=== PATIENT | male | born 1935 | race Caucasian/White ===

== ENCOUNTER 2016-09-08 11:19 | Inpatient (IN) | payer OTHER, MEDICARE ==
[~2016-09-08] VITALS: Ht 177.8 cm; Wt 107.0 kg
[~2016-09-08 11:19] MED LIST: ALLOPURINOL300 MG PO; CRESTOR20 MG PO; FERROUS SULFAT325 M3 PO; FLOMAX(MONOGRA0.4 MG PO; FLOMAX0.4 M1 PO; GOOD SENSE ASPI81 M1 PO; HUMALOG100 U/ML SC; IMDUR60 MG PO; LASIX20 MG PO; LASIX40 M1 PO; LISINOPRIL40 MG PO; MASON NATURAL325 MG PO; METOPROLOL TART25 M1 PO; NEURONTIN300 M1 PO; NORVASC 5MG TAB5 MG PO; NOVOLIN 701000 UNITS SC; NOVOLOG MI100 UNIT/1 SC; NOVOLOG100 U/ML SC; PRILOSEC20 MG PO; RENAGEL 800MG800 MG PO; SODIUM BICARB325 MG PO; SODIUM BICARBO325 M1 PO; TOPROL XL25 MG PO; VITAMIN D1000 IU PO
--- NOTE | 2016-09-08 11:23 | ED MVC/FALL/TRAUMA COMPLAINT ---
History of Present Illness General Chief Complaint: Fall Stated Complaint: BIBA MECHANICAL FALL Source: patient, family, old records Exam Limitations: no limitations Vital Signs & Intake/Output Vital Signs & Intake/Output Vital Signs Date Time Temp Pulse Resp B/P Pulse O2 O2 Flow FiO2 Ox Delivery Rate 09/09 1039 94 110/42 09/09 1039 94 110/42 09/09 1039 94 110/42 09/09 0825 101.2 94 20 110/42 09/09 0800 92 Nasal 4.0L Cannula 09/09 0729 101.0 09/09 0630 102.0 09/09 0000 96 Nasal 2.0L Cannula 09/08 2346 97.8 86 18 138/82 93 Nasal Cannula 09/08 1931 81 100/50 09/08 1913 Nasal 2.0L Cannula 09/08 1845 81 100/50 09/08 1630 96 Nasal 2.0L Cannula 09/08 1627 97.6 81 16 100/50 95 Nasal 3.0L Cannula ED Intake and Output 09/09 0000 09/08 1200 Intake Total 1450 Output Total 1400 Balance 50 Intake, IV 1050 Intake, Oral 400 Output, Urine 1400 Patient 236 lb 236 lb Weight Allergies Coded Allergies: NO KNOWN ALLERGIES (03/25/16) Reconcile Medications Allopurinol 300 MG TAB 1 TAB PO DAILY GOUT (Reported) Amlodipine (Norvasc 5MG Tab) 5 MG TABLET 1 TAB PO DAILY blood pressure ( Reported) Aspirin 81 MG TAB.CHEW 1 TAB PO DAILY HEART HEALTH (Reported) Cholecalciferol (Vitamin D3) (Vitamin D) 2,000 UNIT TABLET 1 TAB PO DAILY SUPPLEMENT (Reported) Clopidogrel Bisulfate (Clopidogrel) 75 MG TABLET 1 TAB PO DAILY BLOOD THINNER (Reported) Ferrous Sulfate 325 MG TABLET 1 TAB PO BID RENAL FAILURE (Reported) Furosemide (Lasix) 40 MG TABLET 1 TAB PO DAILY CHF (Reported) Gabapentin (Neurontin) 300 MG CAPSULE 2 CAP PO QPM NERVE PAIN (Reported) Insulin Aspart Protam & Aspart (Novolog Mix 70-30 Vial) 100 UNIT/ML (70-30) VIAL 22 U SC BID DIABETES (Reported) Isosorbide Mononitrate (Imdur) [address] 1 TAB PO DAILY CAD (Reported) Metoprolol Tartrate 25 MG TABLET 0.5 TAB PO BID HEART/BP (Reported) Omeprazole (Prilosec) 20 MG ECC 1 TAB PO DAILY GERD (Reported) Rosuvastatin Calcium (Crestor) 20 MG TABLET 1 TAB PO DAILY CHOLESTEROL ( Reported) Sodium Bicarbonate 325 MG TABLET 1 TAB PO BID RENAL (Reported) Tamsulosin HCl (Flomax) 0.4 MG CAP.ER.24H 1 CAP PO QPM PROSTATE (Reported) Triage Nurses Notes Reviewed? yes Onset: Abrupt Duration: LAST NIGHT Timing: single episode today Severity: moderate No Modifying Factors: none ( ) Associated Symptoms: FEVER, LETHARGY, COUGH HPI: This is an 81-year-old male who presents to the ER from home via EMS accompanied by his daughter for chief complaint of shortness of breath, fever of 11.8 today. According to the daughter he was a little lethargic last night. This morning she noticed she was little bit altered took his temperature which was 101.8. The last few days he has not been feeling well but elected to come to the hospital. He has been having an ongoing right foot infection which they've been treating with Flagyl into the wound. The decision was made a few days ago that he really should have amputation of the foot. He also has a chronic cough but might be a little bit worse today. His daughter of chest pain this morning which prompted her to call EMS. Upon arrival he denies any chest pain and does not remember having chest pain at home. Past History Travel History Traveled to [place] past 21 day No Medical History Any Pertinent Medical History? see below for history Neurological: NONE EENT: NONE Cardiovascular: CAD, CHF, CABG FEMORAL STENTS Respiratory: NONE Gastrointestinal: NONE Hepatic: NONE Renal: chronic kidney disease Musculoskeletal: NEUROPATHY Psychiatric: NONE Endocrine: diabetes Blood Disorders: NONE Cancer(s): NONE STENO TYPIST/Reproductive: NONE Other Medical Hx: Diastolic CHF, Lt. carotid stent, BPH, History of MRSA: No History of VRE: No History of CDIFF: No Pneumonia Vaccine: 06/10/04 Influenza Vaccine: 07/25/13 Surgical History Surgical History: VACULAR STENTS Psychosocial History Who do you live with Daughter Services at Home None What is your primary language Maori Family History Family History, If Any: No Known Family History. Hx Contributory? No Review of Systems Review of Systems Constitutional: Reports: fever, malaise, weakness. Eyes: Denies: blindness, blurred vision. Ears, Nose, Throat, Mouth: Reports: no symptoms. Respiratory: Denies: cough, short of breath. Cardiovascular: Reports: chest pain. Gastrointestinal/Abdominal: Denies: abdominal pain, diarrhea, vomiting. Genitourinary: Reports: no symptoms. Musculoskeletal: Reports: no symptoms. Skin: Reports: see HPI (CYANOSIS RIGHT TOES). Neurological/Psychological: Reports: see HPI (LETHARGIC). All Other Systems: Reviewed and Negative Physical Exam Physical Exam General Appearance: well developed/nourished, awake, lethargic, moderate distress, obese Head: atraumatic, normal appearance Eyes: Bilateral: normal appearance, PERRL, EOMI. Ears, Nose, Throat, Mouth: hearing grossly normal Neck: normal inspection, supple, full range of motion Respiratory: decreased breath sounds (BILATEARLLY) Cardiovascular: regular rate/rhythm Peripheral Pulses: 2+ radial (R), 2+ radial (L) Gastrointestinal: soft, non-tender, OBESE Extremities: RIGHT LEG SWELLING, CYANOSIS OF TOES, DIMINIISHED SENSATION Neurologic/Psych: no motor/sensory deficits, awake, LETHARGIC Skin: intact, normal color, warm/dry Core Measures ACS in differential dx? No Severe Sepsis Present: No Septic Shock Present: No Progress Differential Diagnosis: PNEUMONIA, UROSEPSIS, BACTEREMIA, SEPSIS, OSBEOMYELITIS Plan of Care: Orders Procedure Date/time Status BASIC ELECTROLYTES PLUS BUN&CR 09/10 0600 Active Change service to 09/09 1107 Active Change service to 09/09 0905 Active CBC WITHOUT DIFFERENTIAL 09/09 0600 Complete BASIC ELECTROLYTES PLUS BUN&CR 09/09 0600 Complete TROPONIN LEVEL 09/09 0000 Complete EKG 09/09 0000 Active US-RENAL/KIDNEY 09/09 UNK Active House Staff 09/09 UNK Active MISSING MEDICATION FORM 09/09 UNK Active ECHOCARDIOGRAM 09/09 UNK Active Heart Healthy Diet 09/08 D Active Turn and Reposition 09/08 2047 Active Skin Integrity Protocol 09/08 2038 Active Skin/Pressure Ulcer Assess (Sk 09/08 2038 Active RT: Evaluation 09/08 1913 Active TROPONIN LEVEL 09/08 1800 Complete EKG 09/08 1800 Active CULTURE,URINE 09/08 1657 Active Vital Signs 09/08 1637 Active Teach/Educate 09/08 163 Active Nutritional Intake, Monitor 09/08 163 Active Isolation 09/08 1637 Active Intake & Output 09/08 163 Active Patient Care Conference 09/08 1637 Active Activity/Ambulation 09/08 1637 Active STREP PNEUMO URINARY ANTIGEN 09/08 1546 Complete LEGIONELLA URINARY ANTIGEN 09/08 1546 Complete URINALYSIS 09/08 1546 Complete TRC EVALUATION (GEN) 09/08 1508 Complete Pathway - chart 09/08 1508 Active House Staff 09/08 1508 Active Patient Data 09/08 1508 Active Wound Care/Dressing 09/08 1457 Active FingerStick- Glucose 09/08 1457 Active VIRAL CULTURE 09/08 1155 Active MAGNESIUM 09/08 1140 Complete THERAPIST ORDERS 09/08 UNK Complete OXYGEN SETUP (GEN) 09/08 UNK Complete Lab Add-on Test 09/08 UNK Active Garcia, Insertion/Removal/Asses 09/08 UNK Active Current Medications Sig/Howard Start time Last Medication Dose Stop Time Status Admin Ampicillin Sodium/ 1,500 MG Q12H 09/09 1600 AC Sulbactam Sodium (Unasyn) Sodium Chloride 100 ML (Normal Saline 0.9%) Sodium Chloride 1,000 ML Q10H 09/09 1045 AC (Normal Saline 0.9%) Oxycodone/ 1 TAB Q6 PRN 09/08 1800 AC Acetaminophen (Percocet) Acetaminophen 650 MG Q6P PRN 09/08 1515 AC (Tylenol) Laboratory Tests 09/09/16 0615: Anion Gap 18 H, Estimated GFR 11 L, BUN/Creatinine Ratio 16.0, CBC w Diff NO MAN DIFF REQ, RBC 3.02 L, MCV 85.8, MCH 28.4, RDW 15.3 H, MPV 8.3, Gran % 88.8 H, Lymphocytes % 3.8 L, Monocytes % 7.0, Eosinophils % 0.2, Basophils % 0.2, Absolute Granulocytes 11.8 H, Absolute Lymphocytes 0.5 L, Absolute Monocytes 0.9 H, Absolute Eosinophils 0, Absolute Basophils 0, PUBS MCHC 33.1 09/09/16 0200: Urinalysis HEAVY H, Urine Color YEL, Urine Clarity CLDY H, Urine pH 6.0, Ur Specific [place] >= 1.030, Urine Protein 100 H, Urine Ketones NEG, Urine Nitrite NEG, Urine Bilirubin NEG, Urine Urobilinogen 0.2, Ur Leukocyte Esterase TRACE H, Ur Microscopic SEDIMENT EXAMINED, Urine RBC 10-15 H, Urine WBC 5-10 H, Ur Epithelial Cells MOD H, Granular Casts 1-3 H, Urine Hemoglobin LARGE H, Urine Glucose NEG 09/09/16 0045: Troponin I 0.13 *H 09/08/16 1815: Troponin I 0.16 *H Microbiology 09/09 1342 URINE ROUT: Legionella Antigen - COMP 09/09 1342 URINE ROUT: Streptococcus pneumoniae Antigen (M - COMP 09/09 0200 URINE ROUT: Urine Culture - RECD 09/08 1546 LOWER RESP: Respiratory Culture - CAN Cancelled: NO SPUTUM COLLECTED FOR MICRO DEPT. 09/08 1546 LOWER RESP: Gram Stain - CAN Cancelled: NO SPUTUM COLLECTED FOR MICRO DEPT. Diagnostic Imaging: Viewed by Me: Radiology Read. Discussed w/RAD: Radiology Read. Radiology Impression: PATIENT: HOLLIE MALDONADO PRESENT AGE: 81 PATIENT ACCOUNT NO: [id number] : 33 LOCATION: ER ORDERING PHYSICIAN: FARHANA PORTER MD SERVICE DATE: 09/08/16 EXAM TYPE: RAD - XRY -PORTABLE CHEST XRAY EXAMINATION: XR PORTABLE CHEST CLINICAL INFORMATION: Fever, dyspnea, hypoxia COMPARISON: 01/05/2015 TECHNIQUE: Portable view of the chest was obtained. FINDINGS: The lungs are hypoinflated. No focal consolidation, pulmonary edema, or pleural effusion. Stable cardiomediastinal silhouette. IMPRESSION: Hypoinflation with no significant change. No acute pulmonary findings. DICTATED BY: DAVEY DAN MD DATE/TIME DICTATED:09/08/161249 COSTUMER ASSISTANT:ELAINE DATE/TIME TRANSCRIBED:09/08/161249 CONFIDENTIAL, DO NOT COPY WITHOUT APPROPRIATE AUTHORIZATION. <Electronically signed in Other Vendor System> SIGNED BY: DAVEY DAN MD 09/08/161253, PATIENT: HOLLIE MALDONADO PRESENT AGE: 81 PATIENT ACCOUNT NO: [id number] : 33 LOCATION: ER ORDERING PHYSICIAN: FARHANA PORTER MD SERVICE DATE: 09/08/16 EXAM TYPE: RAD - XRY-TOES, RIGHT EXAMINATION: XR TOE , RIGHT CLINICAL INFORMATION: Question osteomyelitis. Right foot wound COMPARISON: None. TECHNIQUE: AP film of the right foot and 2 views of the right great toe FINDINGS: There is a probable skin ulceration adjacent to the medial aspect of the metatarsophalangeal joint of the great toe. No associated focal bone erosion or destruction is appreciated at the level of the skin lesion. There is a marginal erosion at the lateral aspect of the first metatarsophalangeal joint space of proximal phalanx which may be related to arthritic change. There is joint space narrowing and hypertrophic spurring in the proximal and distal interphalangeal joints. No fracture or dislocation is seen. There is arterial vascular calcification IMPRESSION: There is a skin ulcer adjacent to the medial aspect of the first metatarsophalangeal joint of the great toe. No definitive changes of osteomyelitis are seen at this level although early osteomyelitis may not be radiographically apparent. 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 DICTATED BY: MELANY CAMPA MD DATE/TIME DICTATED:09/08/161245 COSTUMER ASSISTANT:ELAINE DATE/TIME TRANSCRIBED:1245 CONFIDENTIAL, DO NOT COPY WITHOUT APPROPRIATE AUTHORIZATION. < Electronically signed in Other Vendor System> SIGNED BY: MELANY CAMPA MD 09/08/16 1254 Initial ED EKG: LBBB Prior EKG: unchanged Rhythm Strip: normal sinus rhythm ED Sepsis Exam Date of Focused Sepsis Exam: 09/08/16 Time of Focused Sepsis Exam: 1145 Sepsis Cardiac Exam: Regular Rate/Rhythm Sepsis Resp Exam: Ronchi Sepsis Cap Refill Exam: <2 Sec Sepsis Peripheral Pulse Exam: Normal Sepsis Peripheral Pulse Location: Radial Sepsis Skin Color Exam: Normal for Ethnicity Skin Temp/Moisture Exam: Warm/Dry Departure Departure Time of Disposition: 131 Disposition: STILL A PATIENT Condition: Stable Clinical Impression Primary Impression: Pneumonia Secondary Impressions: Elevated troponin Referrals: WALLACE LORD MD (PCP/Family) Departure Forms: Customer Survey General Discharge Information Admission Note Spoke With: CHIDI CHAMPION MD Documentation of Exam: Documentation of any treatments & extenuating circumstances including Concerns Regarding Discharge (functional status, medication knowledge or non-compliance, living conditions, etc.) that warrant an admission rather than observation: [IV ABX, MONITOR I/O, TRC/NEBS, SERIAL EKG/TROPONIN, F/U CULTURES, CARDIOLOGY CONSULTATION, RENAL CONSULTATION, ] Critical Care Note Critical Care Note Critical Care Time: 30-74 min
--- NOTE | 2016-09-08 11:30 | NUR ---
BIBA FROM HOME S/P FALL YESTERDAY AND C/P LEFT SIDED FLANK AREA PAIN. PT ARRIVES TO ED WITH DAUGHTER, WHO STATES PT HAS ONGOING WOUNDS TO RIGHT TOES/FOOT, RECENT DECISION MADE TO AMPUTATE. TEMP UPON ARRIVAL 100.0, PER DAUGHTER TEMP WAS 101.8 AT HOME.
[2016-09-08] MEDS ORDERED: VITAMIN D2000 UNI1 PO (11:46)
[2016-09-08] MEDS ORDERED: CLOPIDOGREL75 M1 PO (11:47)
[2016-09-08 11:58] LABS: ABSOLUTE BASOPHIL COUNT 0.1 /CUMM (0.0-0.2); ABSOLUTE EOSINOPHIL COUNT 0 /CUMM (0.0-0.7); ABSOLUTE GRANULOCYTE CT 13.3 /CUMM (1.4-6.5); ABSOLUTE MONOCYTE COUNT 1.6 /CUMM (0.10-0.60); BASOPHIL % 0.4 % (0.0-2.0); EOSINOPHIL % 0.2 % (0-5); HEMATOCRIT 27.5 % (42-52); MEAN CORPUSCULAR HGB 28.7 PG (27.0-31.0); MEAN CORPUSCULAR HGB CONC 33.3 G/DL (33.0-37.0); MEAN CORPUSCULAR VOLUME 86.2 FL (80.0-94.0); MEAN PLATELET VOLUME 7.2 FL (7.4-10.4); PLATELET COUNT 187 /CUMM (130-400); WHITE BLOOD CELL COUNT 15.9 /CUMM (4.8-10.8)
--- NOTE | 2016-09-08 12:00 | NUR ---
PCXR AND R TOE/FOOT XRAYS DONE. BLOOD CULTURE X 1 AND BLOODWORK,SST,LAV,BLUE,DICK AND PINK TOP TUBES, FLU SWAB AND SPUTUM CULTURE SENT TO LAB.
[2016-09-08 12:11] LABS: GRANULOCYTE % 83.3 % (42.2-75.2)
--- NOTE | 2016-09-08 12:18 | NUR ---
RESP TX IN PROGRESS.
--- NOTE | 2016-09-08 12:30 | NUR ---
CRITICAL TEST RESULTS [id number] HOLLIE MALDONADO 81 M TESTS AND RESULTS: TROPONIN .18 Results received and read back by: JEREMY ZHOU Results received date and time: 09/08/16 1231 The following provider was notified of the results, and read the results back: DR PORTER Notified date and time: 09/08/16 at 1232 PER CYNTHIA IN LAB
--- NOTE | 2016-09-08 12:54 | RADIOLOGY REPORT ---
EXAMINATION: XR TOE, RIGHT CLINICAL INFORMATION: Question osteomyelitis. Right foot wound COMPARISON: None. TECHNIQUE: AP film of the right foot and 2 views of the right great toe FINDINGS: There is a probable skin ulceration adjacent to the medial aspect of the metatarsophalangeal joint of the great toe. No associated focal bone erosion or destruction is appreciated at the level of the skin lesion. There is a marginal erosion at the lateral aspect of the first metatarsophalangeal joint space of proximal phalanx which may be related to arthritic change. There is joint space narrowing and hypertrophic spurring in the proximal and distal interphalangeal joints. No fracture or dislocation is seen. There is arterial vascular calcification IMPRESSION: There is a skin ulcer adjacent to the medial aspect of the first metatarsophalangeal joint of the great toe. No definitive changes of osteomyelitis are seen at this level although early osteomyelitis may not be radiographically apparent. 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
--- NOTE | 2016-09-08 12:54 | RADIOLOGY REPORT ---
EXAMINATION: XR PORTABLE CHEST CLINICAL INFORMATION: Fever, dyspnea, hypoxia COMPARISON: 01/05/2015 TECHNIQUE: Portable view of the chest was obtained. FINDINGS: The lungs are hypoinflated. No focal consolidation, pulmonary edema, or pleural effusion. Stable cardiomediastinal silhouette. IMPRESSION: Hypoinflation with no significant change. No acute pulmonary findings.
--- NOTE | 2016-09-08 13:14 | NUR ---
ANTIBIOTICS ORDERED. DECUBITUS NOTED UPPER RT BUTTOCKS AREA. SKIN BROKEN. STAGE 2. DR PORTER AWARE.
--- NOTE | 2016-09-08 13:58 | NUR ---
PT WILL GO TO ROOM 171
--- NOTE | 2016-09-08 14:38 | NUR ---
REPORT GIVEN TO APOLONIA KRAUSE ON . STATES WE CAN TRANSPORT PT AFTER 3:30PM. HOUSESTAFF IN TO SEE PT.
--- NOTE | 2016-09-08 14:43 | NUR ---
PT REQUESTING/GIVEN URINAL AT PRESENT. WILL OBTAIN URINE SPECIMEN IF ABLE TO PROVIDE.
--- NOTE | 2016-09-08 15:09 | NUR ---
PT HAS HEAD CT ORDERED, DAUGHTER REFUSES IT AT THIS TIME, WILL CONSIDER IF ANYTHING CHANGES. DR OBRIEN NOTIFIED.
--- NOTE | 2016-09-08 15:46 | NUR ---
PER MONITOR PATIENT HAD EPISODE OF [place] BY RECORDING JUST [employer] OBSERVED 3 EPISODES OF PVC COUPLETS OBSERVED PATIENT SLEEPING THOUGHOUT EVENTS DR OBRIEN CALLED AND INFORMED TO CONTINUE W/ TRANSPORT
--- NOTE | 2016-09-08 15:51 | History & Physical ---
KHUSHBU OBRIEN 09/08/16 0230: General Information and HPI MD Statement: I have seen and personally examined HOLLIE MALDONADO and documented this H&P. The patient is a 81 year old M who presented with a patient stated chief complaint of [dyspnea/chest pain]. Source of Information: patient, family (daughter) Exam Limitations: unable to give history, not alert/orientated, clinical condition History of Present Illness: Mr. Maldonado is an 81-year-old gentleman with significant past medical history of CAD status post CABG, peripheral artery disease status post carotid endarterectomy, and femoral artery stenting], sick sinus syndrome status post pacemaker placement, diabetes, stage III CKD, hypertension, hyperlipidemia, diabetes who presents to [facility] emergency department for evaluation of dyspnea and chest pain. At the time of interview, the patient was quite lethargic and most of the interview was obtained from his daughter who is a nurse and lives with him. She states that he was feeling well over the last week, and is at baseline quite independent. She states that he does almost everything himself except for a wound care dressing change to his right foot. She states that this morning he complained of dyspnea as well as a single episode of chest pain this morning. When she checked his vitals, she states that it was 100.8 and she called EMS. When EMS arrived the patient was more arousable however he was still febrile, 100, and they decided to come to the hospital. When questioned the patient states that he is not dyspneic or having any pain however he is quite lethargic and alert and oriented 2. It should be noted that he did have a fall yesterday, which was mechanical, and he did hit his ear however denies any significant head strike, headache, nausea, vomiting, dizziness, lightheadedness or visual/hearing changes. Also, it should be noted that he has been on flagyl for treatment of a chronic right foot ulcer (a family friend library acquisitions technician has been taking care of this), however the daughter states the patient has not had an MRI to evaluate for osteomyelitis. Social hx - quit smoking 50y ago, occasional EtOH use (social) Again the patient was unable to thoroughly answer a review of systems. Physical exam revealed vitals, temperature 100.0, pulse rate 89, respiratory rate 20, BP 125/60, saturating 95% on 2 L of oxygen via nasal cannula. Examination revealed a lethargic age appropriate appearing male lying comfortably in bed in no acute distress. Normal HEENT exam, auscultation of the chest revealed quiet respiration bilaterally, no rhonchi or wheezes/rales appreciated. Heart exam also revealed quiet S1-S2, no murmurs rubs or gallops are appreciated. Abdomen was distended and nontender. Lower extremities revealed bilateral +2 pitting edema to the proximal motion. A 2" x 1.5 right great toe ulcer on the medial aspect was noted. poor cap refill bilaterally in the toes with care to be a small area of necrosis in the lateral aspect of the right foot distally. Pulses not appreciated by palpation. EKG revealed sinus rhythm at a rate of 83 bpm with incomplete left bundle branch block which is unchanged from previous examination. Significant labs H&H 9.2/ 27.5. White blood cell count 15.9. BUN/creatinine 73/4.5. First set of troponin 0.18. BNP 6580. Chest x-ray revealed hypoinflation with no significant change and no pulmonary findings. An x-ray of the toe revealed a skin ulcer adjacent to the medial aspect of the first MTP joint of the great toe. No definitive changes of ostium myelitis were seen. Head CT was ordered however the patient's daughter stated that she would like to hold off on the head CT for now. She was amenable to an MRI of the right foot to evaluate for osteoarthritis. Problem list/assessment and plan Elevated troponin in light of significant coronary artery disease and vasculopathy * The patient does have a significant risk of myocardial infarction. However, I do believe that his troponinosis is most likely secondary to demand ischemia - he did meet sepsis criteria * We will admit to telemetry and rule him out with serial enzymes and EKGs * Cardiac consult placed and appreciated. Leukocytosis * He does meet sepsis criteria, temperature and leukocytosis with a source [ right foot ulcer] * We will draw blood cultures and start Unasyn 3 g every 12 hours as he does have CKD with a decreased GFR * MRI to evaluate for osteomyelitis * We will repeat CBC tomorrow * The daughter did state he had an episode of sputum production, green, Unasyn will also cover any pulmonary pathology. * We will investigate with urinary legionella/strep as well as sputum culture. Acute on chronic kidney disease * Per the daughter, his last creatinine approximately 1 week ago was 2.5. * On admission today it is 4.5. * Per the daughter, he has not voided since yesterday. We will insert a Garcia catheter and reevaluate BEP tomorrow, in conjunction with gentle hydration 50 mL of normal saline per hour. * ? obstruction vs BPH * If his kidney function does not improve, consider renal u/s and neprho consult. * He follows up with Dr. Vazquez in the outpt setting * We will hold lasix and allopurinol for now. Please reassess in the am. Diabetes * Continue home dose of novolog 70/30, 22 units BID and we will place him on a sliding scale with fingerstick measurements TIDACHS. Vasculopathy * s/p femoral stenting bilaterally per the daughter. * Pt has been evaluated for a right foot amputation in the past. We will consider vascular consult as if his foot does have osteomyelitis, ABx treatment will not penetrate the area well as it is not well perfused. Hypertension * continue home meds Pt does not want any aggressive measures - triple lumen with pressors ok for now , please talk to daughter if this is necessary. DNR/DNI heart healthy diet heparin for dvt ppx pain path Allergies/Medications Allergies: Coded Allergies: NO KNOWN ALLERGIES (03/25/16) Home Med list Allopurinol 300 MG TAB 1 TAB PO DAILY GOUT (Reported) Amlodipine (Norvasc 5MG Tab) 5 MG TABLET 1 TAB PO DAILY blood pressure ( Reported) Aspirin 81 MG TAB.CHEW 1 TAB PO DAILY HEART HEALTH (Reported) Cholecalciferol (Vitamin D3) (Vitamin D) 2,000 UNIT TABLET 1 TAB PO DAILY SUPPLEMENT (Reported) Clopidogrel Bisulfate (Clopidogrel) 75 MG TABLET 1 TAB PO DAILY BLOOD THINNER (Reported) Ferrous Sulfate 325 MG TABLET 1 TAB PO BID RENAL FAILURE (Reported) Furosemide (Lasix) 40 MG TABLET 1 TAB PO DAILY CHF (Reported) Gabapentin (Neurontin) 300 MG CAPSULE 2 CAP PO QPM NERVE PAIN (Reported) Insulin Aspart Protam & Aspart (Novolog Mix 70-30 Vial) 100 UNIT/ML (70-30) VIAL 22 U SC BID DIABETES (Reported) Isosorbide Mononitrate (Imdur) [address] 1 TAB PO DAILY CAD (Reported) Metoprolol Tartrate 25 MG TABLET 0.5 TAB PO BID HEART/BP (Reported) Omeprazole (Prilosec) 20 MG ECC 1 TAB PO DAILY GERD (Reported) Rosuvastatin Calcium (Crestor) 20 MG TABLET 1 TAB PO DAILY CHOLESTEROL ( Reported) Sodium Bicarbonate 325 MG TABLET 1 TAB PO BID RENAL (Reported) Tamsulosin HCl (Flomax) 0.4 MG CAP.ER.24H 1 CAP PO QPM PROSTATE (Reported) Past History Travel History Traveled to [place] past 21 day No Medical History Neurological: NONE EENT: NONE Cardiovascular: CAD, CHF, CABG FEMORAL STENTS Respiratory: NONE Gastrointestinal: NONE Hepatic: NONE Renal: chronic kidney disease Musculoskeletal: NEUROPATHY Psychiatric: NONE Endocrine: diabetes Blood Disorders: NONE Cancer(s): NONE ENGINEERING SYSTEMS ANALYST/Reproductive: NONE Other Medical Hx: Diastolic CHF, Lt. carotid stent, BPH, History of MRSA: No History of VRE: No History of CDIFF: No Pneumonia Vaccine: 06/10/04 Influenza Vaccine: 07/25/13 Surgical History Surgical History: see HPI Past Family/Social History Family History Relations & Conditions if any No Known Family History. Psychosocial History Services at Home: None ETOH Use: denies use Illicit Drug Use: denies illicit drug use Review of Systems Review of Systems Constitutional: Reports: see HPI. Exam & Diagnostic Data Last 24 Hrs of Vital Signs/I&O Vital Signs Date Time Temp Pulse Resp B/P Pulse O2 O2 Flow FiO2 Ox Delivery Rate 09/08 1627 97.6 81 16 100/50 95 Nasal 3.0L Cannula 09/08 1419 96 Room Air 09/08 1414 97.1 88 16 110/64 96 Room Air 09/08 1347 98.1 09/08 1215 96 Nasal 2.5L Cannula 09/08 1200 100.0 09/08 1123 100.0 89 20 125/60 95 Nasal 2.0L Cannula Intake & Output 09/08 1600 09/08 0800 09/08 0000 Intake Total 850 Output Total Balance 850 Intake, IV 850 Patient 107.048 kg Weight Physical Exam General Appearance See HPI Diagnostic Data EKG Results SR at 83 with incomplete LBBB CXR Results SERVICE DATE: 09/08/16 EXAM TYPE: RAD - XRY-PORTABLE CHEST XRAY EXAMINATION: XR PORTABLE CHEST CLINICAL INFORMATION: Fever, dyspnea, hypoxia COMPARISON: 01/05/2015 TECHNIQUE: Portable view of the chest was obtained. FINDINGS: The lungs are hypoinflated. No focal consolidation, pulmonary edema, or pleural effusion. Stable cardiomediastinal silhouette. IMPRESSION: Hypoinflation with no significant change. No acute pulmonary findings. Other Results SERVICE DATE: 09/08/16 EXAM TYPE: RAD - XRY-TOES, RIGHT EXAMINATION: XR TOE, RIGHT CLINICAL INFORMATION: Question osteomyelitis. Right foot wound COMPARISON: None. TECHNIQUE: AP film of the right foot and 2 views of the right great toe FINDINGS: There is a probable skin ulceration adjacent to the medial aspect of the metatarsophalangeal joint of the great toe. No associated focal bone erosion or destruction is appreciated at the level of the skin lesion. There is a marginal erosion at the lateral aspect of the first metatarsophalangeal joint space of proximal phalanx which may be related to arthritic change. There is joint space narrowing and hypertrophic spurring in the proximal and distal interphalangeal joints. No fracture or dislocation is seen. There is arterial vascular calcification IMPRESSION: There is a skin ulcer adjacent to the medial aspect of the first metatarsophalangeal joint of the great toe. No definitive changes of osteomyelitis are seen at this level although early osteomyelitis may not be radiographically apparent. 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 Assessment/Plan As Ranked By This Provider Problem List: 1. Elevated troponin 2. Acute renal failure 3. DNI (do not intubate) 4. DNR (do not resuscitate) 5. CAD (coronary artery disease) 6. Shortness of breath 7. Diabetes mellitus type 2 8. Coronary artery bypass grafts x 4 Core Measures/Miscellaneous Acute Coronary Syndrome ACS Diagnosis: No Cerebrovascular Accident CVA/TIA Diagnosis: No Congestive Heart Failure CHF Diagnosis: No Venous Thromboembolism VTE Risk Factors: Acute medical illness VTE Prophylaxis Ordered Inpt: [facility] prophylaxis d/t: No contraindications No VTE Pharm Prophylaxis d/t: No contraindications VTE Diagnosis: No VTE Type: NONE VTE Confirmed by (Test): NONE Severe Sepsis Severe Sepsis Present: No Septic Shock Septic Shock Present: No Miscellaneous Documentation Attending Case Discussed With: CHIDI CHAMPION MD Primary Care Physician: WALLACE LORD MD Patient sees these Specialists Dr. Ann and Dr. Vazquez Level of Patient Care: Telemetry CHIDI CHAMPION MD 09/08/16 5718: Attending MD Review Statement Attending Statement Attending MD Statement: examined this patient, discuss w/resident/PA/LIABILITY ANALYST, agreed w/resident/PA/LIABILITY ANALYST, discussed with family, reviewed EMR data (avail), discussed with nursing, reviewed images Attending Assessment/Plan: 81-year-old male with past medical history significant for diabetes mellitus, with peripheral neuropathy, coronary artery disease status post CABG, CHF, permanent pacemaker, peripheral vascular disease status post femoral stents, chronic kidney disease and BPH comes in, along with his daughter who is a nurse at [employer], for shortness of breath, fever and chest pain for 1 day. She also reported to have lower extremity wounds R>L with 2 open wounds on the right heel. Patient has not been admitted to the hospital in the last 1-1/2 years. On examination he was found to be therapeutic with a temp of 100, blood pressure 110/64, pulse rate 81 respiratory rate 16 and is requiring 3 L of oxygen on nasal cannula. Physical examination shows an obese male, lethargic, HEENT exam normal, decreased breath sounds bilaterally on chest examination, heart rate is regular rhythm with no murmurs, right lower extremity shows 2 wounds on the sole with bluish discoloration of the toes Laboratory showing leukocytosis, low H&H, BUN/creatinine 73/4.5, hyperglycemia, elevated troponin, elevated proBNP, chest x-ray with no acute pulmonary findings , and total x-rays not significant for osteomyelitis. Problem list: 1. Rule out acute coronary syndrome 2. Acute on chronic kidney disease 3. Diabetes mellitus with neuropathy 4. Peripheral vascular disease 5. Acute hypoxemic failure probably clinical pneumonia 6. CHF 7. Chronic wounds on the lower extremities, ? Osteomyelitis 8. Hyperglycemia Plan: We will admit the patient to the telemetry floor Rule out for ACS by doing serial troponins and EKGs Cardiology input,will get an echo Gentle IV fluids, avoid nephrotoxic medications, nephro consult Terry culture urine for legionella and strept antigen will start on IV unasyn and azithro, consider ID consult in the morning Wound management,Vascular consult Check PT/INR Continue with aspirin and Plavix Insulin sliding scale DVT prophylaxis DNI/DNR
[2016-09-08 16:27] VITALS: BP 100/50
--- NOTE | 2016-09-08 16:29 | Cons- Cardiology ---
General Information and HPI Consulting Request Date of Consult: 09/08/16 Requested By: CHIDI CHAMPION MD Reason for Consult: Elevated troponin Source of Information: patient, family, old records Exam Limitations: not alert/orientated History of Present Illness: Mr. Maldonado is an 81-year-old gentleman with a past medical history of chronic renal insufficiency, hypertension, hypercholesterolemia, diabetes mellitus, as well as coronary artery disease, status post bypass surgery 10 years ago and peripheral vascular disease (status post carotid endarterectomy and multiple peripheral stentings). He also has sick sinus syndrome and is status post pacemaker implantation. The patient had a fall last night and was noted to be febrile by his daughter and he was brought to the emergency department today. He also was noted to be more lethargic. There evaluation revealed that he was febrile to 100.0 and he had a troponin of 0.18. He also has an ischemic right foot. He did have recent peripheral vascular stenting a few months ago but apparently this was unsuccessful in improving his blood flow and he was going to have a transmetatarsal amputation of his right foot according to the daughter. However this has not yet been scheduled. While in the emergency department there was a report of possible short run of ventricular tachycardia noted on the portable monitor although this was not recorded. At this time the patient is very lethargic and constantly falling asleep and unable to give any good history. However his daughter is present and is conversant with his medical history. Allergies/Medications Allergies: Coded Allergies: NO KNOWN ALLERGIES (03/25/16) Home Med List: Allopurinol 300 MG TAB 1 TAB PO DAILY GOUT (Reported) Amlodipine (Norvasc 5MG Tab) 5 MG TABLET 1 TAB PO DAILY blood pressure ( Reported) Aspirin 81 MG TAB.CHEW 1 TAB PO DAILY HEART HEALTH (Reported) Cholecalciferol (Vitamin D3) (Vitamin D) 2,000 UNIT TABLET 1 TAB PO DAILY SUPPLEMENT (Reported) Clopidogrel Bisulfate (Clopidogrel) 75 MG TABLET 1 TAB PO DAILY BLOOD THINNER (Reported) Ferrous Sulfate 325 MG TABLET 1 TAB PO BID RENAL FAILURE (Reported) Furosemide (Lasix) 40 MG TABLET 1 TAB PO DAILY CHF (Reported) Gabapentin (Neurontin) 300 MG CAPSULE 2 CAP PO QPM NERVE PAIN (Reported) Insulin Aspart Protam & Aspart (Novolog Mix 70-30 Vial) 100 UNIT/ML (70-30) VIAL 22 U SC BID DIABETES (Reported) Isosorbide Mononitrate (Imdur) [address] 1 TAB PO DAILY CAD (Reported) Metoprolol Tartrate 25 MG TABLET 0.5 TAB PO BID HEART/BP (Reported) Omeprazole (Prilosec) 20 MG ECC 1 TAB PO DAILY GERD (Reported) Rosuvastatin Calcium (Crestor) 20 MG TABLET 1 TAB PO DAILY CHOLESTEROL ( Reported) Sodium Bicarbonate 325 MG TABLET 1 TAB PO BID RENAL (Reported) Tamsulosin HCl (Flomax) 0.4 MG CAP.ER.24H 1 CAP PO QPM PROSTATE (Reported) Current Medications: Current Medications Sig/Howard Start time Last Medication Dose Route Stop Time Status Admin Acetaminophen 650 MG Q6P PRN 09/08 1515 AC PO Acetaminophen 1,000 MG Q6P PRN 09/08 1515 AC IV Acetaminophen 1,000 MG ONCE ONE 09/08 1145 DC 09/08 N/A 1 UNIT IV 09/08 1159 1200 Acetaminophen 0 .STK-MED ONE 09/08 1143 DC IV Albuterol Sulfate 3 ML ONCE ONE 09/08 1145 DC 09/08 INH 09/08 1146 1210 Amlodipine Besylate 5 MG DAILY 09/09 1000 AC PO Ampicillin Sodium/ 3,000 MG Q12H 09/08 1600 AC Sulbactam Sodium IV Sodium Chloride 100 ML Aspirin 81 MG DAILY 09/09 1000 AC PO Aspirin 0 .STK-MED ONE 09/08 1338 DC PO Aspirin 325 MG ONCE ONE 09/08 1330 DC 09/08 PO 09/08 1331 1346 Atorvastatin Calcium 80 MG 1700 09/08 1700 AC PO Azithromycin 500 MG DAILY 09/08 1452 AC Sodium Chloride 250 ML IV Azithromycin 500 MG ONCE ONE 09/08 1215 DC 09/08 Sodium Chloride 250 ML IV 09/08 1314 1310 Ceftriaxone Sodium 0 .STK-MED ONE 09/08 1226 DC .ROUTE Ceftriaxone Sodium 1,000 MG ONCE ONE 09/08 1215 DC 09/08 IV 09/08 1216 1245 Cholecalciferol 2,000 IU DAILY 09/09 1000 AC PO Clopidogrel Bisulfate 75 MG DAILY 09/09 1000 AC PO Ferrous Sulfate 325 MG BID 09/08 2200 AC PO Gabapentin 600 MG QPM 09/08 2200 AC PO Heparin Sodium 5,000 UNIT Q8 09/08 1504 AC (Porcine) SC Insulin Aspart Prota 22 UNIT BID 09/08 2199 AC 70%/Aspart 30% SC Isosorbide 60 MG DAILY 09/08 1448 AC Mononitrate PO Metoprolol Tartrate 12.5 MG BID 09/08 2199 AC PO Omeprazole 20 MG DAILY AC 09/08 1448 AC PO Oxycodone/ 1 TAB Q6 PRN 09/08 1800 AC Acetaminophen PO Sodium Bicarbonate 325 MG BID 09/08 2199 AC PO Sodium Chloride 1,000 ML DAILY 09/08 1515 AC IV 09/10 0559 Sodium Chloride 500 ML BOLUS ONE 09/08 1245 DC 09/08 IV 09/08 1344 1322 Tamsulosin HCl 0.4 MG QPM 09/08 2199 AC PO Review of Systems Review of Systems: Unable to be obtained Past History Travel History Traveled to [place] past 21 day No Medical History Neurological: NONE EENT: NONE Cardiovascular: CAD, CHF, CABG FEMORAL STENTS Respiratory: NONE Gastrointestinal: NONE Hepatic: NONE Renal: chronic kidney disease Musculoskeletal: NEUROPATHY Psychiatric: NONE Endocrine: diabetes Blood Disorders: NONE Cancer(s): NONE ACCOUNTING ASSOCIATE/Reproductive: NONE Other Medical Hx: Diastolic CHF, Lt. carotid stent, BPH, Surgical History Surgical History: CABG (vascular surgery) Family History Relations & Conditions If Any: No Known Family History. Psychosocial History Services at Home: None ETOH Use: denies use Illicit Drug Use: denies illicit drug use Exam & Diagnostic Data Vital Signs and I&O Vital Signs Date Time Temp Pulse Resp B/P Pulse O2 O2 Flow FiO2 Ox Delivery Rate 09/08 1627 97.6 81 16 100/50 95 Nasal 3.0L Cannula 09/08 1419 96 Room Air 09/08 1414 97.1 88 16 110/64 96 Room Air 09/08 1347 98.1 09/08 1215 96 Nasal 2.5L Cannula 09/08 1200 100.0 09/08 1123 100.0 89 20 125/60 95 Nasal 2.0L Cannula Intake & Output 09/08 1600 09/08 0000 09/07 1600 09/07 0000 Intake Total 850 Output Total Balance 850 Intake, IV 850 Patient 236 lb Weight Physical Exam: On physical he is an elderly obese male lethargic but in no distress HEENT exam is grossly normal Chest reveals no abnormalities to limited exam Heart reveals slightly irregular rhythm with soft heart sounds and no murmurs Extremities reveal toes on his right foot are cyanotic and ischemic. He has 2+ pitting edema of his lower extremities and absent pulses in the feet Labs/Kirk Results: Laboratory Tests 09/08 09/08 1432 1140 Chemistry Sodium (137 - 145 mmol/L) 136 L Potassium (3.5 - 5.1 mmol/L) 4.3 Chloride (98 - 107 mmol/L) 95 L Carbon Dioxide (22 - 30 mmol/L) 22 Anion Gap (5 - 16) 20 H BUN (9 - 20 mg/dL) 73 H Creatinine (0.7 - 1.2 mg/dL) 4.5 H Estimated GFR (>60 ml/min) 13 L BUN/Creatinine Ratio (7 - 25 %) 16.2 Glucose (65 - 99 mg/dL) 176 H Lactic Acid (0.7 - 2.1 mmol/L) Cancelled 1.1 Calcium (8.4 - 10.2 mg/dL) 8.3 L Total Bilirubin (0.2 - 1.3 mg/dL) 0.6 AST (17 - 59 U/L) 22 ALT (21 - 72 U/L) 18 L Alkaline Phosphatase (< 127 U/L) 54 Troponin I (<0.11 ng/ml) 0.18 *H [id number] Pept (<125 pg/mL) 6580 H Total Protein (6.3 - 8.2 g/dL) 6.2 L Albumin (3.5 - 5.0 g/dL) 3.6 Globulin (1.9 - 4.2 gm/dL) 2.6 Albumin/Globulin Ratio (1.1 - 2.2 %) 1.4 Hematology CBC w Diff NO MAN DIFF REQ WBC (4.8 - 10.8 /CUMM) 15.9 H RBC (4.70 - 6.10 /CUMM) 3.20 L Hgb (14.0 - 18.0 G/DL) 9.2 L Hct (42 - 52 %) 27.5 L MCV (80.0 - 94.0 FL) 86.2 MCH (27.0 - 31.0 PG) 28.7 RDW (11.5 - 14.5 %) 15.0 H Plt Count (130 - 400 /CUMM) 187 MPV (7.4 - 10.4 FL) 7.2 L Gran % (42.2 - 75.2 %) 83.3 H Lymphocytes % (20.5 - 51.1 %) 6.1 L Monocytes % (1.7 - 9.3 %) 10.0 H Eosinophils % (0 - 5 %) 0.2 Basophils % (0.0 - 2.0 %) 0.4 Absolute Granulocytes (1.4 - 6.5 /CUMM) 13.3 H Absolute Lymphocytes (1.2 - 3.4 /CUMM) 1.0 L Absolute Monocytes (0.10 - 0.60 /CUMM) 1.6 H Absolute Eosinophils (0.0 - 0.7 /CUMM) 0 Absolute Basophils (0.0 - 0.2 /CUMM) 0.1 PUBS MCHC (33.0 - 37.0 G/DL) 33.3 Diagnostic Data EKG Results EKG on presentation shows sinus rhythm at a rate of 87 with an incomplete left bundle branch block pattern and no acute changes. CXR Results PATIENT: HOLLIE MALDONADO PRESENT AGE: 81 PATIENT ACCOUNT NO: [id number] : 33 LOCATION: [facility] ORDERING PHYSICIAN: FARHANA PORTER MD SERVICE DATE: 09/08/16113 EXAM TYPE: RAD - XRY-PORTABLE CHEST XRAY EXAMINATION: XR PORTABLE CHEST CLINICAL INFORMATION: Fever, dyspnea, hypoxia COMPARISON: 01/05/2015 TECHNIQUE: Portable view of the chest was obtained. FINDINGS: The lungs are hypoinflated. No focal consolidation, pulmonary edema, or pleural effusion. Stable cardiomediastinal silhouette. IMPRESSION: Hypoinflation with no significant change. No acute pulmonary findings. DICTATED BY: DAVEY DAN MD DATE/TIME DICTATED:09/08/161249 PROTECTIVE CLOTHING ISSUER:ELAINE DATE/TIME TRANSCRIBED:09/08/161249 CONFIDENTIAL, DO NOT COPY WITHOUT APPROPRIATE AUTHORIZATION. <Electronically signed in Other Vendor System> SIGNED BY: DAVEY DAN MD 04/179 Assessment/Plan Assessment/Plan This patient presents with worsening renal failure, fever, lethargy and slightly positive troponin. This is likely demand ischemia, however serial enzymes need to be done. His EKG does not show any acute changes. His chest x-ray did not demonstrate any congestive heart failure, although his BNP is mildly elevated. There is also a question of some ventricular arrhythmias noted on the monitor, although this was not recorded. We will need to watch his monitor for any significant arrhythmias. For now I would recommend just monitoring him, obtaining serial EKGs and enzymes , and working him up for his fever. I would not recommend intravenous heparin at this time. Nephrology consultation would be useful, although he does not look like a good candidate for dialysis due to his major underlying medical issues. He is listed as DNR/DNI. Consult Acknowledgment - Thank you for your consult request.
--- NOTE | 2016-09-08 19:14 | Admission Certification ---
Admission Certification Certification Statement - As attending physician, I certify that at the time of - admission, based on clinical presentation, severity of - symptoms, need for further diagnostic testing and - therapeutic interventions, and risk of adverse outcomes - without in-hospital treatment, in my clinical assessment, - this patient requires an acute hospital stay for a minimum - of two nights or longer. I have also considered psychsocial - factors such as support system, advanced age, financial - issues, cognitive issues, and failed out-patient treatments, - past re-admission history, safety of patient, and lack of - compliance as applicable. Specific rationale supporting this admission is: Acute hypoxemic failure Community acquired pneumonia Acute on Chronic kidney disease
--- NOTE | 2016-09-08 20:59 | NUR ---
16:05 PM ADMISSION NOTE: PT ARRIVED TO FLOOR AT 16:05 PM ACCOMPANIED BY ED RN. PLACED ON TELE MONITOR. VSS. DAUGHTER SHIMA AT BEDSIDE REQUESTING BLADDER SCAN. 753 ML FOUND ON BLADDER SCAN. DR OBRIEN MADE AWARE & BURGESS CATHER PLACED WITH 1050 ML OUTPUT. ORIENTED TO CALL LIGHT & ROOM. NSR W/ PACS. WILL CONTINUE TO MONITOR.
--- NOTE | 2016-09-08 21:01 | NUR ---
ARRHYTHMIA: NOTIFIED BY OluKai PT HAD 8 BEAT RUN OF V TACH AT 17:52 PM. PT ASYMPTOMATIC & ASLEEP AT THIS TIME. STRIP SHOWED TO DR OBRIEN. WILL CONTINUE TO MONITOR. LABS DRAWN & SENT. EKG DONE. NOTIFIED BY [facility] HAND PT HAS UNDETERMINED AMOUNT OF V TACH AT 18:43 PM. PT ASYMPTOMATIC & ASLEEP AT THIS TIME. STRIP SHOWED TO DR OBRIEN. MEDS GIVEN PER EMAR. WILL CONTINUE TO MONITOR.
[2016-09-08 23:46] VITALS: BP 138/82
[2016-09-09 07:54] LABS: ABSOLUTE BASOPHIL COUNT 0 /CUMM (0.0-0.2); ABSOLUTE EOSINOPHIL COUNT 0 /CUMM (0.0-0.7); ABSOLUTE GRANULOCYTE CT 11.8 /CUMM (1.4-6.5); ABSOLUTE LYMPH COUNT 0.5 /CUMM (1.2-3.4); ABSOLUTE MONOCYTE COUNT 0.9 /CUMM (0.10-0.60); BASOPHIL % 0.2 % (0.0-2.0); EOSINOPHIL % 0.2 % (0-5); HEMATOCRIT 25.9 % (42-52); MEAN CORPUSCULAR HGB 28.4 PG (27.0-31.0); MEAN CORPUSCULAR HGB CONC 33.1 G/DL (33.0-37.0); MEAN CORPUSCULAR VOLUME 85.8 FL (80.0-94.0); MEAN PLATELET VOLUME 8.3 FL (7.4-10.4); RBC DISTRIBUTION WIDTH 15.3 % (11.5-14.5); RED BLOOD CELL CT 3.02 /CUMM (4.70-6.10); WHITE BLOOD CELL COUNT 13.3 /CUMM (4.8-10.8)
[2016-09-09 08:25] VITALS: BP 110/42
[2016-09-09 08:44] LABS: GRANULOCYTE % 88.8 % (42.2-75.2); PLATELET COUNT 142 /CUMM (130-400)
--- NOTE | 2016-09-09 09:16 | NUR ---
730 PT O2 ON 2L NC WAS 84% PT SHOWS NO SIGNS OF DISTRESS. O2 TURNED UP TO 3L NC. 0735 REPSIRATORY CALLED. THEY STATES HES NOT BEING FOLLOWED BY RESPIRATORY BUT WILL COME ASSESS PT. 0800 REASSESS PT O2 86% 3L NC. DR LUCIA LINARES IN ROOM WITH ME AND INFORMED OF PT LOW O2 AND SAID OK. I TURNED HIS O2 UP TO 4L NC AND O2 UP WENT UP TO 92%. WILL CONTINUE TO MONITOR PT.
--- NOTE | 2016-09-09 09:17 | PN- Housestaff ---
SHELBY PEACE,[facility] 09/09/16 0917: Subjective Follow-up For: Rule out coronary artery disease Acute on chronic renal failure Peripheral vascular disease History of sick sinus syndrome with pacemaker Tele-Events Since Last Visit: Sinus rhythm, heart rate 7294 21 beats of V. tach yesterday evening Subjective: Patient was seen and examined this morning, he developed a fever overnight of 102, currently his temp is 101.2. Patient is lethargic, complained of cough with scanty white sputum, denied any blood. He is on 3 L oxygen with saturation 87%, severe increased to 4 L with 92% saturation. He denied any chest pain, palpitation, abdominal pain, nausea or vomiting, diarrhea or constipation, urinary changes. Review of Systems Constitutional: Denies: see HPI. Objective Last 24 Hrs of Vital Signs/I&O Vital Signs Date Time Temp Pulse Resp B/P Pulse O2 O2 Flow FiO2 Ox Delivery Rate 09/09 1540 98.0 80 18 110/50 93 Nasal Cannula 09/09 1039 94 110/42 09/09 1039 94 110/42 09/09 1039 94 110/42 09/09 0825 101.2 94 20 110/42 09/09 0800 92 Nasal 4.0L Cannula 09/09 0729 101.0 09/09 0630 102.0 09/09 0000 96 Nasal 2.0L Cannula 09/08 2346 97.8 86 18 138/82 93 Nasal Cannula 09/08 1931 81 100/50 09/08 1913 Nasal 2.0L Cannula 09/08 1845 81 100/50 09/08 1630 96 Nasal 2.0L Cannula 09/08 1627 97.6 81 16 100/50 95 Nasal 3.0L Cannula Intake & Output 09/09 1600 09/09 0800 09/09 0000 Intake Total 1990 500 600 Output Total 590 903 7740 Balance 1840 200 -800 Intake, IV 550 300 200 Intake, Oral 1440 200 400 Output, Urine 190 707 2217 Patient 107.048 kg Weight Physical Exam General Appearance: Moderate Distress, lithergic Skin: venous stasis skin changes of right foot, right foort ulcer has a bandge Neck: Supple, No JVD Cardiovascular: Regular Rate, Normal S1, Normal S2, No Murmurs Lungs: clear no wheeze, cracles, criptation were appriciated. Abdomen: Normal Bowel Sounds, Soft, No Tenderness Neurological: Normal Speech, Strength at 5/5 X4 Ext, Normal Tone Extremities: +1 pedal edema bilateral Assessment/Plan Assessment: Mr. Kuhn is an 81-year-old male with PMH of CAD status post CABG, peripheral artery disease status post carotid endarterectomy, and femoral artery stenting, sick sinus syndrome status post pacemaker placement, diabetes, stage III CKD, hypertension, hyperlipidemia, diabetes who presents of dyspnea and chest pain. Problem list #Possible coronary artery disease #Acute on top of chronic kidney disease #Acute hypoxemic respiratory failure #Hypertension and hyperlipidemia #Diabetes mellitus #Peripheral vascular disease, right foot ulcer, possible osteomyelitis #Benign prostatic hyperplasia #Gout #Possible coronary artery disease -Patient troponin on admission was 0.18, was trended down to 0.13 -Troponin elevation is attributed to worsening kidney function and demand ischemia -Cardiology is on board, appreciate the recommendation -Echo is ordered, pending -Patient has history of sinus sick syndrome with pacemaker, will wait for integration for any history of arrhythmia, patient has 21 beats of vent tech beats evening yesterday -Patient has echo on 2013 with left ventricular ejection fraction 50-60% and stage II diastolic dysfunction #Acute on top of chronic kidney disease -Patient has 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 hypertensive nephrosclerosis -Patient Cr 2 weeks before admission was 2.5, on admission 4.5 -Today creatinine is 5.2 -Nephrology on board -HARSHAL versus ATN -Ultrasound renal was ordered to exclude obstruction -Patient has Garcia with very poor urine output, for the last 9 hours output is 150 and input 2000 -Continue IV fluid 100 ml/h per nephrology -Patient has chronic metabolic acidosis on sodium bicarbonate -Continue Sodium bicarbonate 325 mg by mouth daily -Patient refusing dialysis #Hypertension and hyperlipidemia -Continue Crestor 20 mg daily home dose, patient has allergic from Lipitor -Continue metoprolol 12.5 mg twice a day -Continue aspirin 81 mg daily -Continue Imdur 60 mg daily -Discontinue amlodipine per cardiology -Hold Lasix #Diabetes mellitus -NovoLog 70-30 22 units twice a day -accu checks #Peripheral vascular disease, right foot ulcer, possible osteomyelitis -Continue clopidogrel 75 mg daily -X-ray right toes IMPRESSION: There is a skin ulcer adjacent to the medial aspect of the first metatarsophalangeal joint of the great toe. No definitive changes of osteomyelitis are seen at this level although early osteomyelitis may not be radiographically apparent. 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 -Patient presented with WBC of 15.9 and lactic acid 1.1, blood pressure 100/50 no fever on admission although he developed fever overnight of 102. Sepsis with possible source right foot ulcer or pulmonary -Continue azithromycin 500 mg and decrease Unasyn to 1500 every 12 per nephrology -Vascular consultation was obtained, thanks for the recommendation -Recommendation for MRI right foot, patient has incompetent pacemaker -Consideration for bone scan future, wiil check base with podiatry Dr. Padilla to see if they prefer bone scan or CT #Acute hypoxemic respiratory failure -Patient presented with WBC of 15.9 and lactic acid 1.1, blood pressure 100/50 no fever on admission although he developed fever overnight of 102. Sepsis with possible source right foot ulcer or pulmonary -Chest x-ray is clear or any acute pulmonary disease -Patient increased oxygen demand on 4 L saturation 92% -Continue azithromycin 500 mg and decrease Unasyn to 1500 every 12 per nephrology #Benign prostatic hypertrophy -Continue Tamsulsoin 0.4 mg daily #Gout -Hold allopurinol DVT prophylaxis heparin subcutaneous Diet heart healthy diet Code DNR/DNI Consultation vascular, cardio, nephrology, ID pending Problem List: 1. Benign essential hypertension 2. Diabetes mellitus type 2 3. Hyperlipidemia 4. Peripheral arterial occlusive disease 5. Chronic renal disease 6. CAD (coronary artery disease) 7. Acute on chronic renal failure 8. Acute hypoxemic respiratory failure Pain Ratin Pain Location: n/a Pain Goal: Remain pain free Pain Plan: see mediaction Tomorrow's Labs & Rationales: CBC in the setting of infection CMP in setting of worsening kidney function and metabolic acidosis ASAEL HILL MD 09/09/16 2236: Attending Review Statement Attending Statement Attending MD Statement: examined this patient, discuss w/resident/PA/BRIM FLEXER, agreed w/resident/PA/BRIM FLEXER, reviewed EMR data (avail), discussed with nursing, discussed with case mgmt, amended to note Attending Assessment/Plan: The patient was seen and discussed with house staff. Appreciate air quality consultant input. Agree with the current plan of care.
--- NOTE | 2016-09-09 10:45 | Cons- Nephrology ---
General Information and HPI Consulting Request Date of Consult: 09/09/16 Requested By: CHIDI CHAMPION MD Reason for Consult: CKD & HARSHAL Source of Information: patient, family, old records Exam Limitations: no limitations History of Present Illness: 81 yr old WM w mult med problems including DM, HTN, diffuse ASCVDx, & CKD admit yesterday after mechanical fall @ home w CP, cough productive green sputum, & fever. Known severe PVDx w chronic R foot ulcer as well. Baseline severe, stage 4, CKD w Cr 2'-3's w associated nephrotic range proteinureia, met acid requiring po bicarb, & recurrent hyperkalemia. Cr elevated 4.5 on admit w further rise 5.2 today w/o NSAIDS or recent IV contrast. No ACEI or ARB but borderline BP to 100 systolic. Urine nonoliguric & no gross uremic sx; denies SOB this morning. Begun on Unasyn & ceftriaxone but no record of Vanco or aminoglycosides. Pt has elective conservative ESRD management & declined dialysis should need arise. Allergies/Medications Allergies: Coded Allergies: NO KNOWN ALLERGIES (03/25/16) Home Med List: Allopurinol 300 MG TAB 1 TAB PO DAILY GOUT (Reported) Amlodipine (Norvasc 5MG Tab) 5 MG TABLET 1 TAB PO DAILY blood pressure ( Reported) Aspirin 81 MG TAB.CHEW 1 TAB PO DAILY HEART HEALTH (Reported) Cholecalciferol (Vitamin D3) (Vitamin D) 2,000 UNIT TABLET 1 TAB PO DAILY SUPPLEMENT (Reported) Clopidogrel Bisulfate (Clopidogrel) 75 MG TABLET 1 TAB PO DAILY BLOOD THINNER (Reported) Ferrous Sulfate 325 MG TABLET 1 TAB PO BID RENAL FAILURE (Reported) Furosemide (Lasix) 40 MG TABLET 1 TAB PO DAILY CHF (Reported) Gabapentin (Neurontin) 300 MG CAPSULE 2 CAP PO QPM NERVE PAIN (Reported) Insulin Aspart Protam & Aspart (Novolog Mix 70-30 Vial) 100 UNIT/ML (70-30) VIAL 22 U SC BID DIABETES (Reported) Isosorbide Mononitrate (Imdur) [address] 1 TAB PO DAILY CAD (Reported) Metoprolol Tartrate 25 MG TABLET 0.5 TAB PO BID HEART/BP (Reported) Omeprazole (Prilosec) 20 MG ECC 1 TAB PO DAILY GERD (Reported) Rosuvastatin Calcium (Crestor) 20 MG TABLET 1 TAB PO DAILY CHOLESTEROL ( Reported) Sodium Bicarbonate 325 MG TABLET 1 TAB PO BID RENAL (Reported) Tamsulosin HCl (Flomax) 0.4 MG CAP.ER.24H 1 CAP PO QPM PROSTATE (Reported) Current Medications: Current Medications Sig/Howard Start time Last Medication Dose Route Stop Time Status Admin Acetaminophen 650 MG Q6P PRN 09/08 1515 AC PO Acetaminophen 1,000 MG Q6P PRN 09/08 1515 DC 09/09 IV 0630 Acetaminophen 1,000 MG ONCE ONE 09/08 1145 DC 09/08 N/A 1 UNIT IV 09/08 1159 1200 Acetaminophen 0 .STK-MED ONE 09/08 1143 DC IV Albuterol Sulfate 3 ML ONCE ONE 09/08 1145 DC 09/08 INH 09/08 1146 1210 Amlodipine Besylate 5 MG DAILY 09/09 1000 AC PO Ampicillin Sodium/ 3,000 MG Q12H 09/08 1600 AC 09/09 Sulbactam Sodium IV 0400 Sodium Chloride 100 ML Aspirin 81 MG DAILY 09/09 1000 AC PO Aspirin 0 .STK-MED ONE 09/08 1338 DC PO Aspirin 325 MG ONCE ONE 09/08 1330 DC 09/08 PO 09/08 1331 1346 Atorvastatin Calcium 80 MG 1700 09/08 1700 AC 09/08 PO 1839 Azithromycin 500 MG DAILY 09/08 1452 AC 09/08 Sodium Chloride 250 ML IV 2000 Azithromycin 500 MG ONCE ONE 09/08 1215 DC 09/08 Sodium Chloride 250 ML IV 09/08 1314 1310 Ceftriaxone Sodium 0 .STK-MED ONE 09/08 1226 DC .ROUTE Ceftriaxone Sodium 1,000 MG ONCE ONE 09/08 1215 DC 09/08 IV 09/08 1216 1245 Cholecalciferol 2,000 IU DAILY 09/09 1000 AC PO Clopidogrel Bisulfate 75 MG DAILY 09/09 1000 AC PO Ferrous Sulfate 325 MG BID 09/08 2200 AC 09/08 PO 2145 Gabapentin 600 MG QPM 09/08 2200 AC 09/08 PO 2145 Heparin Sodium 5,000 UNIT Q8 09/08 1504 AC 09/09 (Porcine) SC 0600 Insulin Aspart Prota 22 UNIT BID 09/08 2200 AC 70%/Aspart 30% SC Isosorbide 60 MG DAILY 09/08 1448 AC 09/08 Mononitrate PO 1845 Metoprolol Tartrate 12.5 MG BID 09/08 2200 AC 09/08 PO 1931 Omeprazole 20 MG DAILY AC 09/08 1448 AC 09/09 PO 0700 Oxycodone/ 1 TAB Q6 PRN 09/08 1800 AC Acetaminophen PO Sodium Bicarbonate 325 MG BID 09/08 2200 AC 09/08 PO 2145 Sodium Chloride 1,000 ML DAILY 09/08 1515 AC 09/08 IV 09/09 1959 1815 Sodium Chloride 500 ML BOLUS ONE 09/08 1245 DC 09/08 IV 09/08 1344 1322 Tamsulosin HCl 0.4 MG QPM 09/08 220 AC 09/08 PO 2144 Review of Systems Review of Systems Constitutional: Denies: fever. EENTM: Reports: no symptoms. Cardiovascular: Reports: chest pain. Respiratory: Reports: sputum production. GI: Reports: no symptoms. Genitourinary: Reports: no symptoms. Musculoskeletal: Reports: no symptoms. Skin: Reports: no symptoms. Neurological/Psychological: Reports: no symptoms. Hematologic/Endocrine: Reports: no symptoms. Immunologic/Allergic: Reports: no symptoms. All Other Systems: Reviewed and Negative Past History Travel History Traveled to [place] past 21 day No Medical History Blood Transfusion Hx: No Neurological: NONE EENT: NONE Cardiovascular: CAD, CHF, CABG FEMORAL STENTS Respiratory: NONE Gastrointestinal: NONE Hepatic: NONE Renal: chronic kidney disease Musculoskeletal: NEUROPATHY Psychiatric: NONE Endocrine: diabetes Blood Disorders: NONE Cancer(s): NONE OCCUPATIONAL THER/Reproductive: NONE Other Medical Hx: Diastolic CHF, Lt. carotid stent, BPH, Surgical History Surgical History: see HPI Family History Relations & Conditions If Any: No Known Family History. Psychosocial History Where Do You Live? Home Services at Home: None Smoking Status: Former Smoker ETOH Use: denies use Illicit Drug Use: denies illicit drug use Exam & Diagnostic Data Vital Signs and I&O Vital Signs Date Time Temp Pulse Resp B/P Pulse O2 O2 Flow FiO2 Ox Delivery Rate 09/09 08 101.2 94 20 110/42 09/09 0729 101.0 09/09 0630 102.0 09/09 0000 96 Nasal 2.0L Cannula 09/08 2346 97.8 86 18 138/82 93 Nasal Cannula 09/08 1931 81 100/50 09/08 1913 Nasal 2.0L Cannula 09/08 1845 81 100/50 09/08 1630 96 Nasal 2.0L Cannula 09/08 1627 97.6 81 16 100/50 95 Nasal 3.0L Cannula 09/08 1419 96 Room Air 09/08 1414 97.1 88 16 110/64 96 Room Air 09/08 1347 98.1 09/08 1215 96 Nasal 2.5L Cannula 09/08 1200 100.0 09/08 1123 100.0 89 20 125/60 95 Nasal 2.0L Cannula Intake & Output 09/09 1600 09/09 0400 09/08 1600 09/08 0400 09/07 1600 09/07 0400 Intake Total 500 600 850 Output Total 300 1400 Balance 200 -800 850 Intake, IV 300 200 850 Intake, Oral 200 400 Output, Urine 300 1400 Patient 236 lb 236 lb Weight Physical Exam General Appearance: well developed/nourished, no apparent distress, lethargic Head: atraumatic, normal appearance Eyes: Bilateral: normal appearance. Ears, Nose, Throat: normal ENT inspection Neck: normal inspection Respiratory: normal breath sounds, chest non-tender, no respiratory distress, quiet respiration, lungs clear Cardiovascular: regular rate/rhythm, friction rub (none) Gastrointestinal: normal bowel sounds, soft, non-tender, no organomegaly Back: normal inspection Extremities: R foot dressed w mild erythema R leg; trace peripheral edema Neurologic/Psych: no motor/sensory deficits, awake, alert, oriented x 3, no asterixis Skin: intact, erythema R leg Lymphatic: no anterior cervical philomena Results Pertinent Lab Results: Laboratory Tests 09/09 09/09 0615 0200 Chemistry Sodium (137 - 145 mmol/L) 134 L Potassium (3.5 - 5.1 mmol/L) 4.9 Chloride (98 - 107 mmol/L) 97 L Carbon Dioxide (22 - 30 mmol/L) 19 L Anion Gap (5 - 16) 18 H BUN (9 - 20 mg/dL) 83 H Creatinine (0.7 - 1.2 mg/dL) 5.2 *H Estimated GFR (>60 ml/min) 11 L BUN/Creatinine Ratio (7 - 25 %) 16.0 Hematology CBC w Diff NO MAN DIFF REQ WBC (4.8 - 10.8 /CUMM) 13.3 H RBC (4.70 - 6.10 /CUMM) 3.02 L Hgb (14.0 - 18.0 G/DL) 8.6 L Hct (42 - 52 %) 25.9 L MCV (80.0 - 94.0 FL) 85.8 MCH (27.0 - 31.0 PG) 28.4 RDW (11.5 - 14.5 %) 15.3 H Plt Count (130 - 400 /CUMM) 142 MPV (7.4 - 10.4 FL) 8.3 Gran % (42.2 - 75.2 %) 88.8 H Lymphocytes % (20.5 - 51.1 %) 3.8 L Monocytes % (1.7 - 9.3 %) 7.0 Eosinophils % (0 - 5 %) 0.2 Basophils % (0.0 - 2.0 %) 0.2 Absolute Granulocytes (1.4 - 6.5 /CUMM) 11.8 H Absolute Lymphocytes (1.2 - 3.4 /CUMM) 0.5 L Absolute Monocytes (0.10 - 0.60 /CUMM) 0.9 H Absolute Eosinophils (0.0 - 0.7 /CUMM) 0 Absolute Basophils (0.0 - 0.2 /CUMM) 0 PUBS MCHC (33.0 - 37.0 G/DL) 33.1 Urines Urinalysis HEAVY H Urine Color (YEL,AMB,STR) YEL Urine Clarity (CLEAR) CLDY H Urine pH (5.0 - 8.0) 6.0 Ur Specific [place] (1.001 - 1.035) >= 1.030 Urine Protein (NEG,<30 MG/DL) 100 H Urine Ketones (NEG) NEG Urine Nitrite (NEG) NEG Urine Bilirubin (NEG) NEG Urine Urobilinogen (0.1 - 1.0 EU/dl) 0.2 Ur Leukocyte Esterase (NEG) TRACE H Ur Microscopic SEDIMENT EXAMINED Urine RBC (0 - 5 /HPF) 10-15 H Urine WBC (0 - 2 /HPF) 5-10 H Ur Epithelial Cells (NONE,FEW) MOD H Granular Casts (NONE /LPF) 1-3 H Urine Hemoglobin (NEG) LARGE H Urine Glucose (N MG/DL) NEG 09/09 09/08 09/08 09/08 0045 1815 1432 1155 Chemistry Lactic Acid Cancelled Troponin I (<0.11 ng/ml) 0.13 *H 0.16 *H Serology Virus Culture Pending 09/08 09/08 1140 1132 Chemistry Sodium (137 - 145 mmol/L) 136 L Potassium (3.5 - 5.1 mmol/L) 4.3 Chloride (98 - 107 mmol/L) 95 L Carbon Dioxide (22 - 30 mmol/L) 22 Anion Gap (5 - 16) 20 H BUN (9 - 20 mg/dL) 73 H Creatinine (0.7 - 1.2 mg/dL) 4.5 H Estimated GFR (>60 ml/min) 13 L BUN/Creatinine Ratio (7 - 25 %) 16.2 Glucose (65 - 99 mg/dL) 176 H Lactic Acid (0.7 - 2.1 mmol/L) 1.1 Calcium (8.4 - 10.2 mg/dL) 8.3 L Magnesium (1.6 - 2.3 mg/dL) 1.8 Total Bilirubin (0.2 - 1.3 mg/dL) 0.6 AST (17 - 59 U/L) 22 ALT (21 - 72 U/L) 18 L Alkaline Phosphatase (< 127 U/L) 54 Troponin I (<0.11 ng/ml) 0.18 *H [id number] Pept (<125 pg/mL) 6580 H Total Protein (6.3 - 8.2 g/dL) 6.2 L Albumin (3.5 - 5.0 g/dL) 3.6 Globulin (1.9 - 4.2 gm/dL) 2.6 Albumin/Globulin Ratio (1.1 - 2.2 %) 1.4 Hematology CBC w Diff NO MAN DIFF REQ WBC (4.8 - 10.8 /CUMM) 15.9 H RBC (4.70 - 6.10 /CUMM) 3.20 L Hgb (14.0 - 18.0 G/DL) 9.2 L Hct (42 - 52 %) 27.5 L MCV (80.0 - 94.0 FL) 86.2 MCH (27.0 - 31.0 PG) 28.7 RDW (11.5 - 14.5 %) 15.0 H Plt Count (130 - 400 /CUMM) 187 MPV (7.4 - 10.4 FL) 7.2 L Gran % (42.2 - 75.2 %) 83.3 H Lymphocytes % (20.5 - 51.1 %) 6.1 L Monocytes % (1.7 - 9.3 %) 10.0 H Eosinophils % (0 - 5 %) 0.2 Basophils % (0.0 - 2.0 %) 0.4 Absolute Granulocytes (1.4 - 6.5 /CUMM) 13.3 H Absolute Lymphocytes (1.2 - 3.4 /CUMM) 1.0 L Absolute Monocytes (0.10 - 0.60 /CUMM) 1.6 H Absolute Eosinophils (0.0 - 0.7 /CUMM) 0 Absolute Basophils (0.0 - 0.2 /CUMM) 0.1 PUBS MCHC (33.0 - 37.0 G/DL) 33.3 Urines Urine Color Cancelled Urine Clarity Cancelled Urine pH Cancelled Ur Specific [place] Cancelled Urine Protein Cancelled Urine Ketones Cancelled Urine Nitrite Cancelled Urine Bilirubin Cancelled Urine Urobilinogen Cancelled Ur Leukocyte Esterase Cancelled Ur Microscopic Cancelled Urine Hemoglobin Cancelled Urine Glucose Cancelled Imaging/Other Studies: Ft Xray: There is a skin ulcer adjacent to the medial aspect of the first metatarsophalangeal joint of the great toe. No definitive changes of osteomyelitis are seen at this level although early osteomyelitis may not be radiographically apparent. 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 CXR: EXAMINATION: XR PORTABLE CHEST CLINICAL INFORMATION: Fever, dyspnea, hypoxia COMPARISON: 01/05/2015 TECHNIQUE: Portable view of the chest was obtained. FINDINGS: The lungs are hypoinflated. No focal consolidation, pulmonary edema, or pleural effusion. Stable cardiomediastinal silhouette. IMPRESSION: Hypoinflation with no significant change. No acute pulmonary findings. Assessment/Plan Assessment/Recommendations Assessment: 1. HARSHAL: major differential between prerenal due to volume contraction in face of active infection vs ATN due to sepsis & mild hypotension. Need obstruction excluded but unlikely. No urgent renal replacement indication but pt adament that does not want dialysis under any circumstances. Have discussed in detail w daughter this morning & if renal function doesn not improve & dialysis imperative arises --> opts for palliative care/hospice. 2. CKD: severe, stage 4, due to diabetic & HTN nephrosclerosis w recent Cr per daughter in 2s. 3. Met acid: chronic & controlled; continue po bicarb supplement. Recommendations: 1. increase IV NS 100 ml/hr 2. Renal US 3. lower Unasyn 1.5 grams q12 4. serial chemistries 5. palliative care consult
--- NOTE | 2016-09-09 12:28 | PN- Cardiology ---
Subjective Subjective: Patient lethargic. Again noted to be febrile. Objective Vital Signs and I&Os Vital Signs Date Time Temp Pulse Resp B/P Pulse O2 O2 Flow FiO2 Ox Delivery Rate 09/09 1039 94 110/42 09/09 1039 94 110/42 09/09 1039 94 110/42 09/09 0825 101.2 94 20 110/42 09/09 0729 101.0 09/09 0630 102.0 09/09 0000 96 Nasal 2.0L Cannula 09/08 2346 97.8 86 18 138/82 93 Nasal Cannula 09/08 1931 81 100/50 09/08 1913 Nasal 2.0L Cannula 09/08 1845 81 100/50 09/08 1630 96 Nasal 2.0L Cannula 09/08 1627 97.6 81 16 100/50 95 Nasal 3.0L Cannula 09/08 1419 96 Room Air 09/08 1414 97.1 88 16 110/64 96 Room Air 09/08 1347 98.1 09/08 1215 96 Nasal 2.5L Cannula Intake & Output 09/09 1600 09/09 0800 09/09 0000 09/08 1600 09/08 0800 09/08 0000 Intake Total 500 600 850 Output Total 300 1400 Balance 200 -800 850 Intake, IV 300 200 850 Intake, Oral 200 400 Output, Urine 300 1400 Patient 236 lb 236 lb Weight Physical Exam: General: Lethargic Eyes: No obvious scleral icterus. HEENT: No jugular venous distention or abnormal jugular venous pulsations. Cardiovascular: Normal intensity S1/S2. Regular. Pacemaker noted. Respiratory: Mildly decreased air entry without rhonchi Abdomen: Distended, soft Musculoskeletal: Right lower extremity wound dressing noted, trace edema Skin: Warm Neuro: Limited exam Lymph: No gross cervical lymphadenopathy Current Medications: Current Medications Sig/Howard Start time Last Medication Dose Route Stop Time Status Admin Acetaminophen 650 MG Q6P PRN 09/08 1515 AC PO Acetaminophen 1,000 MG Q6P PRN 09/08 1515 DC 09/09 IV 0630 Amlodipine Besylate 5 MG DAILY 09/09 1000 AC 09/09 PO 1039 Ampicillin Sodium/ 1,500 MG Q12H 09/09 1600 AC Sulbactam Sodium IV Sodium Chloride 100 ML Ampicillin Sodium/ 3,000 MG Q12H 09/08 1600 DC 09/09 Sulbactam Sodium IV 0400 Sodium Chloride 100 ML Aspirin 81 MG DAILY 09/09 1000 AC 09/09 PO 1039 Aspirin 0 .STK-MED ONE 09/08 1338 DC PO Aspirin 325 MG ONCE ONE 09/08 1330 DC 09/08 PO 09/08 1331 1346 Atorvastatin Calcium 80 MG 1700 09/08 1700 AC 09/08 PO 1839 Azithromycin 500 MG DAILY 09/08 1452 AC 09/09 Sodium Chloride 250 ML IV 1036 Azithromycin 500 MG ONCE ONE 09/08 1215 DC 09/08 Sodium Chloride 250 ML IV 09/08 1314 1310 Ceftriaxone Sodium 0 .STK-MED ONE 09/08 1226 DC .ROUTE Ceftriaxone Sodium 1,000 MG ONCE ONE 09/08 1215 DC 09/08 IV 09/08 1216 1245 Cholecalciferol 2,000 IU DAILY 09/09 1000 AC 09/09 PO 1039 Clopidogrel Bisulfate 75 MG DAILY 09/09 1000 AC 09/09 PO 1039 Ferrous Sulfate 325 MG BID 09/08 2200 AC 09/09 PO 1039 Gabapentin 600 MG QPM 09/08 2200 AC 09/08 PO 2145 Heparin Sodium 5,000 UNIT Q8 09/08 1504 AC 09/09 (Porcine) SC 0600 Insulin Aspart Prota 22 UNIT BID 09/08 2200 AC 09/09 70%/Aspart 30% SC 1050 Isosorbide 60 MG DAILY 09/08 1448 AC 09/09 Mononitrate PO 1039 Metoprolol Tartrate 12.5 MG BID 09/08 2200 AC 09/09 PO 1039 Omeprazole 20 MG DAILY AC 09/08 1448 AC 09/09 PO 0700 Oxycodone/ 1 TAB Q6 PRN 09/08 1800 AC Acetaminophen PO Sodium Bicarbonate 325 MG BID 09/08 2200 AC 09/09 PO 1040 Sodium Chloride 1,000 ML Q10H 09/09 1045 AC IV Sodium Chloride 1,000 ML DAILY 09/08 1515 AC 09/08 IV 09/09 1959 1815 Sodium Chloride 500 ML BOLUS ONE 09/08 1245 DC 09/08 IV 09/08 1344 1322 Tamsulosin HCl 0.4 MG QPM 09/08 2200 AC 09/08 PO 2144 Results Last 48 Hrs of Labs/Mics: Laboratory Tests 09/09/16 0615: Anion Gap 18 H, Estimated GFR 11 L, BUN/Creatinine Ratio 16.0, CBC w Diff NO MAN DIFF REQ, RBC 3.02 L, MCV 85.8, MCH 28.4, RDW 15.3 H, MPV 8.3, Gran % 88.8 H, Lymphocytes % 3.8 L, Monocytes % 7.0, Eosinophils % 0.2, Basophils % 0.2, Absolute Granulocytes 11.8 H, Absolute Lymphocytes 0.5 L, Absolute Monocytes 0.9 H, Absolute Eosinophils 0, Absolute Basophils 0, PUBS MCHC 33.1 09/09/16 0200: Urinalysis HEAVY H, Urine Color YEL, Urine Clarity CLDY H, Urine pH 6.0, Ur Specific [place] >= 1.030, Urine Protein 100 H, Urine Ketones NEG, Urine Nitrite NEG, Urine Bilirubin NEG, Urine Urobilinogen 0.2, Ur Leukocyte Esterase TRACE H, Ur Microscopic SEDIMENT EXAMINED, Urine RBC 10-15 H, Urine WBC 5-10 H, Ur Epithelial Cells MOD H, Granular Casts 1-3 H, Urine Hemoglobin LARGE H, Urine Glucose NEG 09/09/16 0045: Troponin I 0.13 *H 09/08/16 1815: Troponin I 0.16 *H 09/08/16 1432: Lactic Acid Cancelled 09/08/16 1155: Virus Culture Pending 09/08/16 1140: Anion Gap 20 H, Estimated GFR 13 L, BUN/Creatinine Ratio 16.2, Glucose 176 H, Lactic Acid 1.1, Calcium 8.3 L, Magnesium 1.8, Total Bilirubin 0.6, AST 22, ALT 18 L, Alkaline Phosphatase 54, Troponin I 0.18 *H, Mkh-T-Zlcfbvanhuq Pept 6580 H, Total Protein 6.2 L, Albumin 3.6, Globulin 2.6, Albumin/Globulin Ratio 1.4, CBC w Diff NO MAN DIFF REQ, RBC 3.20 L, MCV 86.2, MCH 28.7, RDW 15.0 H, MPV 7.2 L, Gran % 83.3 H, Lymphocytes % 6.1 L, Monocytes % 10.0 H, Eosinophils % 0.2, Basophils % 0.4, Absolute Granulocytes 13.3 H, Absolute Lymphocytes 1.0 L , Absolute Monocytes 1.6 H, Absolute Eosinophils 0, Absolute Basophils 0.1, PUBS MCHC 33.3 09/08/16 1132: Urine Color Cancelled, Urine Clarity Cancelled, Urine pH Cancelled, Ur Specific [place] Cancelled, Urine Protein Cancelled, Urine Ketones Cancelled, Urine Nitrite Cancelled, Urine Bilirubin Cancelled, Urine Urobilinogen Cancelled, Ur Leukocyte Esterase Cancelled, Ur Microscopic Cancelled, Urine Hemoglobin Cancelled, Urine Glucose Cancelled Recent Imaging Studies: Telemetry tracings were personally reviewed and shows sinus rhythm with a wide complex run possibly due to AIVR, occasional ventricular pacing noted CXR: IMPRESSION: Hypoinflation with no significant change. No acute pulmonary findings. Echocardiogram outpatient, 12/2015 showed normal left ventricular ejection fraction with pseudonormal filling pattern Assessment/Plan Assessment/Plan 1. Encephalopathy with fever and acute creatinine elevation 2. Concern for osteomyelitis 3. Acute on chronic renal failure 4. Peripheral vascular disease (prior carotid and LE arterial interventions) 5. Mild troponin elevation likely due to renal failure with demand ischemia 6. History of coronary artery disease with prior CABG 7. History of sick sinus syndrome with prior pacemaker 8. History of hypertension/hyperlipidemia/diabetes mellitus 9. Transient wide complex rhythm, possibly AIVR 10. Anemia Patient remains febrile and lethargic this morning. Antibiotic regimen per the medical team. Creatinine up to 5.2 without hyperkalemia. Patient does not appear volume overloaded and agree with gentle hydration. Nephrology input reviewed and patient has not wanted dialysis in the past. ATN versus sepsis versus obstructive etiology possible, he apparently did have low urine output until the Garcia was placed. Cardiorenal syndrome is unlikely. Minimal troponin elevation likely due to renal failure with demand ischemia. Echocardiogram has been ordered and I will follow-up those results. Continue the beta ariadna but would hold Norvasc for now. I will arrange to have his pacemaker interrogated. Continue aspirin, statin, and Plavix. His condition is guarded. Continue to address goals of care. Royce Alegre MD [facility] Continue telemetry? Yes
[2016-09-09 15:40] VITALS: BP 110/50
--- NOTE | 2016-09-09 15:43 | NUR ---
WOUND CARE: REQUESTED BY NURSING TO EVLAUATE PT FOR SKIN ALTERATIONS POA TO RIGHT FOOT AND BUTTOCKS - HX OBTAINED FROM PT AND CHART - PT REPOIRTS SEEING FEMAL SENIOR POLICY ANALYST IN PAST - PMH + DM, WITH FAILED MONOFILAMENT TESTING - RIGHT MEDIAL FOOT NOTED WTIH A 3X4 CM AREA OF DRY THICK STABLE ESCHAR AND ? EXPOSED TENDON VS BONE - RIGHT LATERAL FOOT 2X2 CM FIRM DRY STABLE ESCHAR - SL PERIWOUND ERYTHEMA BOTH WOUNDS - COCCYX NOTED WTIH A 8X5 CM AREA OF DTI DARK PURPLE HUE - INTACT - PT REPORTS HAVING OBTAINED WOUND "WHILE IN THE AMBULANCE" - POOR MOBILITY NOTED - WEAK DP PULSES - DR JEWELL AND DR GOTTLIEB MADE AWARE OF WOUND STATUS AND NEED FOR CONSULTS TO BE COMPLETED TODAY - BOTH MDS RESPONDED THEY WILL EVALUATE TODAY RECOMMENDATION: APPLY DPD UNTIL FURTHER RECOMMEDNATIONS CAN BE PROVIDED BY VASCULAR / PODIATRY - SIZE HERNÁNDEZ MATTRESS - MOISTURE BARRIER QS AND PRN IMPRESSION: DTI COCCYX - ? CAMARGO GRADE 4 VS ARTERIAL ULCER RIGHT FOOT
--- NOTE | 2016-09-09 16:17 | Cons- Vascular Surgery ---
General Information and HPI Consulting Request Date of Consult: 09/09/16 Requested By: ASAEL HILL MD Reason for Consult: Right foot wound, PAD Source of Information: family History of Present Illness: 81 yo male admitted with sepsis. patient with CAD, chronic renal disease, PAD. h/o Right LE arterial stent about 4-5 months ago. Had right foot wounds that were improving. Over the past few weeks, the foot wounds have worsened. Right knee-level amputation was recommended at some point due distal arterial disease. currently admitted with fevers, elevated troponin, and worsening renal function. Currently with wounds to right lateral 5th metatarsal head, 4th toe distal, and plantar aspect of 1st metatarsal head. Patient has adamantly refused dialysis. Allergies/Medications Allergies: Coded Allergies: NO KNOWN ALLERGIES (03/25/16) Home Med List: Allopurinol 300 MG TAB 1 TAB PO DAILY GOUT (Reported) Amlodipine (Norvasc 5MG Tab) 5 MG TABLET 1 TAB PO DAILY blood pressure ( Reported) Aspirin 81 MG TAB.CHEW 1 TAB PO DAILY HEART HEALTH (Reported) Cholecalciferol (Vitamin D3) (Vitamin D) 2,000 UNIT TABLET 1 TAB PO DAILY SUPPLEMENT (Reported) Clopidogrel Bisulfate (Clopidogrel) 75 MG TABLET 1 TAB PO DAILY BLOOD THINNER (Reported) Ferrous Sulfate 325 MG TABLET 1 TAB PO BID RENAL FAILURE (Reported) Furosemide (Lasix) 40 MG TABLET 1 TAB PO DAILY CHF (Reported) Gabapentin (Neurontin) 300 MG CAPSULE 2 CAP PO QPM NERVE PAIN (Reported) Insulin Aspart Protam & Aspart (Novolog Mix 70-30 Vial) 100 UNIT/ML (70-30) VIAL 22 U SC BID DIABETES (Reported) Isosorbide Mononitrate (Imdur) [address] 1 TAB PO DAILY CAD (Reported) Metoprolol Tartrate 25 MG TABLET 0.5 TAB PO BID HEART/BP (Reported) Omeprazole (Prilosec) 20 MG ECC 1 TAB PO DAILY GERD (Reported) Rosuvastatin Calcium (Crestor) 20 MG TABLET 1 TAB PO DAILY CHOLESTEROL ( Reported) Sodium Bicarbonate 325 MG TABLET 1 TAB PO BID RENAL (Reported) Tamsulosin HCl (Flomax) 0.4 MG CAP.ER.24H 1 CAP PO QPM PROSTATE (Reported) Current Medications: Current Medications Sig/Howard Start time Last Medication Dose Route Stop Time Status Admin Acetaminophen 650 MG Q6P PRN 09/08 1515 AC PO Acetaminophen 1,000 MG Q6P PRN 09/08 1515 DC 09/09 IV 0630 Amlodipine Besylate 5 MG DAILY 09/09 1000 DC 09/09 PO 1039 Ampicillin Sodium/ 1,500 MG Q12H 09/09 1600 AC 09/09 Sulbactam Sodium IV 1533 Sodium Chloride 100 ML Ampicillin Sodium/ 3,000 MG Q12H 09/08 1600 DC 09/09 Sulbactam Sodium IV 0400 Sodium Chloride 100 ML Aspirin 81 MG DAILY 09/09 1000 AC 09/09 PO 1039 Atorvastatin Calcium 80 MG 1700 09/08 1700 DC 09/08 PO 1839 Azithromycin 500 MG DAILY 09/08 1452 AC 09/09 Sodium Chloride 250 ML IV 1036 Cholecalciferol 2,000 IU DAILY 09/09 1000 AC 09/09 PO 1039 Clopidogrel Bisulfate 75 MG DAILY 09/09 1000 AC 09/09 PO 1039 Ferrous Sulfate 325 MG BID 09/08 2200 AC 09/09 PO 1039 Gabapentin 600 MG QPM 09/08 2200 AC 09/08 PO 2145 Heparin Sodium 5,000 UNIT Q8 09/08 1504 AC 09/09 (Porcine) SC 1315 Insulin Aspart Prota 22 UNIT BID 09/08 2200 AC 09/09 70%/Aspart 30% SC 1050 Isosorbide 60 MG DAILY 09/08 1448 AC 09/09 Mononitrate PO 1039 Metoprolol Tartrate 12.5 MG BID 09/08 2200 AC 09/09 PO 1039 Omeprazole 20 MG DAILY AC 09/08 1448 AC 09/09 PO 0700 Oxycodone/ 1 TAB Q6 PRN 09/08 1800 AC Acetaminophen PO Rosuvastatin Calcium 20 MG 1700 09/09 1700 AC PO Sodium Bicarbonate 325 MG BID 09/08 2200 AC 09/09 PO 1040 Sodium Chloride 1,000 ML Q10H 09/09 1045 AC IV Sodium Chloride 1,000 ML DAILY 09/08 1515 AC 09/08 IV 09/09 1959 1815 Tamsulosin HCl 0.4 MG QPM 09/08 2200 AC 09/08 PO 2144 Past History Medical History Blood Transfusion Hx: No Neurological: NONE EENT: NONE Cardiovascular: CAD, CHF, CABG FEMORAL STENTS Respiratory: NONE Gastrointestinal: NONE Hepatic: NONE Renal: chronic kidney disease Musculoskeletal: NEUROPATHY Psychiatric: NONE Endocrine: diabetes Blood Disorders: NONE Cancer(s): NONE PUBLIC STENOGRAPHER/Reproductive: NONE Other Medical Hx: Diastolic CHF, Lt. carotid stent, BPH, Surgical History Pertinent Surgical History: CABG (vascular surgery) Family History Relations & Conditions If Any: No Known Family History. Psychosocial History Where Do You Live? Home Services at Home: None Smoking Status: Former Smoker ETOH Use: denies use Illicit Drug Use: denies illicit drug use Review of Systems Review of Systems Constitutional: Reports: fever, weakness. EENTM: Denies: blurred vision. Cardiovascular: Reports: edema. GI: Denies: abdominal pain. Musculoskeletal: Denies: joint pain. Neurological/Psychological: Denies: headache, numbness. Hematologic/Endocrine: Denies: bruising, bleeding. Exam & Diagnostic Data Vital Signs and I&O Vital Signs Date Time Temp Pulse Resp B/P Pulse O2 O2 Flow FiO2 Ox Delivery Rate 09/09 1540 98.0 80 18 110/50 93 Nasal Cannula 09/09 1039 94 110/42 09/09 1039 94 110/42 09/09 1039 94 110/42 09/09 0825 101.2 94 20 110/42 09/09 0800 92 Nasal 4.0L Cannula 09/09 0729 101.0 09/09 0630 102.0 09/09 0000 96 Nasal 2.0L Cannula 09/08 2346 97.8 86 18 138/82 93 Nasal Cannula 09/08 1931 81 100/50 09/08 1913 Nasal 2.0L Cannula 09/08 1845 81 100/50 09/08 1630 96 Nasal 2.0L Cannula 09/08 1627 97.6 81 16 100/50 95 Nasal 3.0L Cannula Intake & Output 09/09 1600 09/09 0809/09 0000 09/08 1600 09/08 0000 Intake Total 1990 500 600 850 Output Total 701 223 2466 Balance 1840 200 -800 850 Intake, IV 550 300 200 850 Intake, Oral 1440 200 400 Output, Urine 742 480 7361 Patient 107.048 kg 107.048 kg Weight Physical Exam General Appearance: well developed/nourished, somnolent but arousable Head: normal appearance Eyes: Bilateral: normal appearance. Respiratory: normal breath sounds Cardiovascular: regular rate/rhythm Peripheral Pulses: 3+ femoral (R), 2+ femoral (L) Gastrointestinal: soft, non-tender Extremities: swelling, RIGHT: 1st met head planatar eschar; 4th toe distal small eschar; 5th toe lateral met had eschar Assessment/Plan Assessment/Plan 1. PAD and right foot ulcer. h/o right LE arterial stent. Now with worsening foot wounds. suspect critical limb ischemia. Will review prior records. Discussed with patient and family the possibility of right leg angiogram and revascularization for limb salvage. If not revascularizable, the may need knee- level amputation. 2. Chronic kidney disease Worsening renal function with current sepsis. May be factor in angiogram; however, moderate dose of contrast may not have overall negative affect on renal function. but will need to see how renal function stabilizes over next few days. 3. Right foot wound, fever. Would need to r/o osteo. patient has cardiac pacemaker, so MRI not feasible. Can consider bone scan. Will continue to follow. Problem List: 1. Peripheral arterial occlusive disease 2. Chronic renal disease Consult Acknowledgment - Thank you for your consult request.
--- NOTE | 2016-09-09 17:49 | Cons- Podiatry ---
General Information and HPI Consulting Request Date of Consult: 09/09/16 Requested By: ASAEL HILL MD History of Present Illness: Esvin is an 81-year-old male admitted for sepsis and worsening renal function. The patient was noted on exam to have a necrotic wound to his right foot. Of note, the patient is status post injury plasty was stenting approximately 5 months ago. Unfortunately, the stent was noted to go down some after the intervention his vascular surgeon Dr. Bianchi recommended a below-knee amputation which the patient refused. Patient has attempted local intensive wound care with little improvement. Allergies/Medications Allergies: Coded Allergies: NO KNOWN ALLERGIES (03/25/16) Home Med List: Allopurinol 300 MG TAB 1 TAB PO DAILY GOUT (Reported) Amlodipine (Norvasc 5MG Tab) 5 MG TABLET 1 TAB PO DAILY blood pressure ( Reported) Aspirin 81 MG TAB.CHEW 1 TAB PO DAILY HEART HEALTH (Reported) Cholecalciferol (Vitamin D3) (Vitamin D) 2,000 UNIT TABLET 1 TAB PO DAILY SUPPLEMENT (Reported) Clopidogrel Bisulfate (Clopidogrel) 75 MG TABLET 1 TAB PO DAILY BLOOD THINNER (Reported) Ferrous Sulfate 325 MG TABLET 1 TAB PO BID RENAL FAILURE (Reported) Furosemide (Lasix) 40 MG TABLET 1 TAB PO DAILY CHF (Reported) Gabapentin (Neurontin) 300 MG CAPSULE 2 CAP PO QPM NERVE PAIN (Reported) Insulin Aspart Protam & Aspart (Novolog Mix 70-30 Vial) 100 UNIT/ML (70-30) VIAL 22 U SC BID DIABETES (Reported) Isosorbide Mononitrate (Imdur) [address] 1 TAB PO DAILY CAD (Reported) Metoprolol Tartrate 25 MG TABLET 0.5 TAB PO BID HEART/BP (Reported) Omeprazole (Prilosec) 20 MG ECC 1 TAB PO DAILY GERD (Reported) Rosuvastatin Calcium (Crestor) 20 MG TABLET 1 TAB PO DAILY CHOLESTEROL ( Reported) Sodium Bicarbonate 325 MG TABLET 1 TAB PO BID RENAL (Reported) Tamsulosin HCl (Flomax) 0.4 MG CAP.ER.24H 1 CAP PO QPM PROSTATE (Reported) Past History Medical History Blood Transfusion Hx: No Neurological: NONE EENT: NONE Cardiovascular: CAD, CHF, CABG FEMORAL STENTS Respiratory: NONE Gastrointestinal: NONE Hepatic: NONE Renal: chronic kidney disease Musculoskeletal: NEUROPATHY Psychiatric: NONE Endocrine: diabetes Blood Disorders: NONE Cancer(s): NONE TELEPHONE EXCHANGE OPERATOR/Reproductive: NONE Other Medical Hx: Diastolic CHF, Lt. carotid stent, BPH, Surgical History Pertinent Surgical History: CABG (vascular surgery) Family History Relations & Conditions If Any: No Known Family History. Psychosocial History Where Do You Live? Home Services at Home: None Smoking Status: Former Smoker ETOH Use: denies use Illicit Drug Use: denies illicit drug use Review of Systems Review of Systems: Unremarkable except for that noted in history of present illness Exam & Diagnostic Data Vital Signs and I&O Vital Signs Date Time Temp Pulse Resp B/P Pulse O2 O2 Flow FiO2 Ox Delivery Rate 09/09 1540 98.0 80 18 110/50 93 Nasal Cannula 09/09 1039 94 110/42 09/09 1039 94 110/42 09/09 1039 94 110/42 09/09 0825 101.2 94 20 110/42 09/09 0800 92 Nasal 4.0L Cannula 09/09 0729 101.0 09/09 0630 102.0 09/09 0000 96 Nasal 2.0L Cannula 09/08 2346 97.8 86 18 138/82 93 Nasal Cannula 09/08 1931 81 100/50 09/08 1913 Nasal 2.0L Cannula 09/08 1845 81 100/50 Intake & Output 09/09 1600 09/09 0800 09/09 0000 09/08 1600 09/08 0800 09/08 0000 Intake Total 1990 500 600 850 Output Total 099 088 7363 Balance 1840 200 -800 850 Intake, IV 550 300 200 850 Intake, Oral 1440 200 400 Output, Urine 203 572 3462 Patient 236 lb 236 lb Weight Physical Exam: Necrotic wound is noted to the lateral aspect of the first and fifth metatarsal heads right foot. No fluctuance or crepitus identified. No drainage noted. Pedal pulses nonpalpable. Assessment/Plan Assessment/Plan Sepsis with worsening renal function and severe arterial disease. Consider a CT without contract or possible bone scan depending on renal function to further characterize the necrotic lesions. Without a vascular's intervention, patient is unlikely to heal a midfoot amputation. For now keep the foot clean and dry. Will follow-up with vascular regarding their plan for intervention. Consult Acknowledgment - Thank you for your consult request. Attending MD Review Statement Attending Statement Attending MD Statement: examined this patient
--- NOTE | 2016-09-09 21:32 | ULTRASOUND REPORT ---
EXAMINATION: US RETROPERITONEAL COMPLETE (RENAL) CLINICAL INFORMATION: Chronic kidney disease and acute kidney insufficiency. COMPARISON: Renal ultrasound 01/05/2015. TECHNIQUE: Real-time imaging of the kidneys and bladder. FINDINGS: RIGHT KIDNEY: 12.9 x 6.8 x 5.0 cm (SAG x AP x TRV). The kidney is normal in size, contour, and echogenicity. Renal cortical thickness is normal. No calculi or focal parenchymal lesions. No hydronephrosis. LEFT KIDNEY: 15.2 x 7.1 x 5.4 cm (SAG x AP x TRV). The kidney is normal in size, contour, and echogenicity. Renal cortical thickness is normal. No calculi or focal parenchymal lesions. No hydronephrosis. BLADDER: The bladder is decompressed; there is a Garcia catheter in place. Ureteral jets were not demonstrated. IMPRESSION: 1. Unremarkable ultrasound of the kidneys. 2. The bladder is decompressed.
[2016-09-09 22:00] VITALS: BP 110/60
--- NOTE | 2016-09-09 22:06 | RADIOLOGY REPORT ---
EXAMINATION: XR PORTABLE CHEST CLINICAL INFORMATION: Pulmonary congestion. Hypoxia. Productive cough. COMPARISON: Chest x-ray done 09/08/2016. TECHNIQUE: Portable semierect view of the chest was obtained. FINDINGS: The heart remains enlarged. As best can be determined, the dual lead left pectoral pacemaker is unchanged in position. Sternotomy wires are in place. New airspace opacities are seen in the right lung. This could reflect early pneumonia or asymmetric edema. There is no apparent pleural effusion. IMPRESSION: An acute change has occurred with patchy airspace disease involving the right lung. Pneumonia, aspiration, or asymmetric edema or differential possibilities.
--- NOTE | 2016-09-09 23:07 | NUR ---
Late entry: AT 2100, TEMP: 102.2, POX-86% 4L. MD THAYER MADE AWARE AND UP TO ASSESS PT WITH RESPIRATORY. PT STARTED ON NON-REBREATHER AT 100%. TYLENOL 650 MG GIVE. FLUIDS STOPPED. ORDERED EKG, BLOOD CULTURES, URINE, LACTIC ACID AND TROPONIN. POX-94% ON NON-REBREATHER. 2226: CRIICAL TROPONIN VALUE:1.96 MD THAYER MADE AWARE. TEMP:99.9 WILL CONTINUE TO MONITOR.
--- NOTE | 2016-09-09 23:14 | CT SCAN REPORT ---
EXAMINATION: CT LOWER EXTREMITY WITHOUT CONTRAST, RIGHT CLINICAL INFORMATION: Right foot wound with ulcers. Peripheral vascular disease. COMPARISON: Radiographs 09/08/2015 TECHNIQUE: Multidetector volumetric imaging of the right foot was performed without IV contrast. Coronal and sagittal reformatted images were obtained at the technologist workstation. DLP: 367 mGy-cm. FINDINGS: There is soft tissue ulceration at the plantar aspect of the medial foot at the level of the first metatarsal head. The medial sesamoid appears to possibly be open to air. There is asymmetric sclerosis of the medial sesamoid, with osteomyelitis not excluded at this location. Additionally, there is medial erosive appearance of the head of the first metatarsal, seen on series 4 image 67 and series 309 image 46. This is highly suspicious for osteomyelitis. No evidence of acute fracture. Mild degenerative changes are seen at the tarsometatarsal joints, first interphalangeal joint, and at the first metatarsophalangeal joint. Osteophyte formation noted. There is hypertrophic spurring of the plantar aponeurosis and Achilles insertion to the calcaneus. Diffuse vascular calcifications are noted. No evidence for fluid collection. There is atrophy of the intrinsic musculature of the foot. IMPRESSION: Soft tissue ulceration involving the medial aspect of the foot adjacent to the first metatarsal head. There are associated erosive changes of the head of the first metatarsal medially, highly suspicious for osteomyelitis. Asymmetric sclerosis of the medial sesamoid also raises suspicion for osteomyelitis.
--- NOTE | 2016-09-10 00:27 | Event Note ---
Event Note Event Note: SITUATION: * Desaturation at 2100 hrs. BRIEF: * Patient was noted to have new onset acute desaturation * SPO2 improved to above 94% on 100% nonrebreather * He denied any chest pain * CXR: An acute change has occurred with patchy airspace disease involving the right lung. Pneumonia, aspiration, or asymmetric edema or differential possibilities. * Troponin: 1.96. No preceding events on telemetry monitoring at no changes on repeat EKG A/P: * Elevated troponins: Likely secondary to demand ischemia in the setting of sepsis: Etiology pneumonia versus osteomyelitis * Spoke with cardiology (Dr Lancaster). At this time will hold off starting heparin as the patient is asymptomatic with noticeable improvement. Repeat EKG/troponin and notify cardiology if significant elevation * Vancomycin 1 * Recommend ID consult in the AM
[2016-09-10 01:49] VITALS: BP 122/44
[2016-09-10 03:39] LABS: ABSOLUTE BASOPHIL COUNT 0 /CUMM (0.0-0.2); ABSOLUTE EOSINOPHIL COUNT 0 /CUMM (0.0-0.7); ABSOLUTE LYMPH COUNT 0.6 /CUMM (1.2-3.4); ABSOLUTE MONOCYTE COUNT 1.2 /CUMM (0.10-0.60); BASOPHIL % 0.1 % (0.0-2.0); EOSINOPHIL % 0.1 % (0-5); GRANULOCYTE % 86.8 % (42.2-75.2); HEMATOCRIT 25.2 % (42-52); MEAN CORPUSCULAR HGB 28.1 PG (27.0-31.0); MEAN CORPUSCULAR HGB CONC 32.8 G/DL (33.0-37.0); MEAN CORPUSCULAR VOLUME 85.7 FL (80.0-94.0); MEAN PLATELET VOLUME 7.9 FL (7.4-10.4); PLATELET COUNT 157 /CUMM (130-400); RBC DISTRIBUTION WIDTH 15.1 % (11.5-14.5); RED BLOOD CELL CT 2.95 /CUMM (4.70-6.10); WHITE BLOOD CELL COUNT 13.8 /CUMM (4.8-10.8)
--- NOTE | 2016-09-10 05:39 | NUR ---
CRITICAL VALUE: CREAT 6.1 AT 0406 AND TROPONIN 2.49 AT 0411. MD FLACA PATEL.
[2016-09-10 08:00] VITALS: BP 100/48
--- NOTE | 2016-09-10 08:32 | PN- Housestaff ---
SHELBY PEACE,[facility] 09/10/16 0831: Subjective Follow-up For: Sepsis due to pneumonia versus osteomyelitis Rule out coronary artery disease Acute on chronic renal failure Peripheral vascular disease History of sick sinus syndrome with pacemaker Tele-Events Since Last Visit: Sinus rhythm/heartrate 89- with PVC and AVC First-degree heart block Subjective: Patient was seen and examined this morning, he is lying comfortably in his bed, oriented to person and time, general looking he looks better than yesterday in terms of fatigability though he has some confusion. He is using 100% non- rebreather since yesterday at 10 PM when he desats, his saturation now is 95%, temperature 100, blood pressure 100/48, pulse 90 bpm. Over the last 24 hours, input/output is 490 by mouth and IV fluid/200 urine. He has a Garcia catheter in place. Review of Systems Constitutional: Reports: fever. Cardiovascular: Reports: chest pain. Respiratory: Reports: cough. Gastrointestinal: Reports: abdominal pain, nausea, vomiting. Objective Last 24 Hrs of Vital Signs/I&O Vital Signs Date Time Temp Pulse Resp B/P Pulse O2 O2 Flow FiO2 Ox Delivery Rate 09/10 0149 99.2 97 20 122/44 93 Non ReBreather 09/10 0000 94 Non 100% ReBreather 09/09 2200 99.9 92 22 110/60 94 Non 100% ReBreather 09/09 2154 93 110/60 09/09 2153 110/60 09/09 2152 99.9 09/09 2057 102.1 09/09 1540 98.0 80 18 110/50 93 Nasal Cannula 09/09 1039 94 110/42 09/09 1039 94 110/42 09/09 1039 94 110/42 Intake & Output 09/10 1600 09/10 0800 09/10 0000 Intake Total 490 980 Output Total 200 125 Balance 290 855 Intake, IV 370 500 Intake, Oral 120 480 Output, Urine 200 125 Physical Exam General Appearance: Alert, Oriented X3, Cooperative, Mild Distress Skin: No Rashes, No Breakdown, No Significant Lesion HEENT: Atraumatic, PERRLA, EOMI Neck: Supple, No JVD Cardiovascular: Regular Rate, Normal S1, Normal S2, No Murmurs Lungs: bilateral basal crackles Abdomen: Normal Bowel Sounds, Soft, distended Neurological: Normal Speech, Strength at 5/5 X4 Ext, Normal Tone Extremities: No Clubbing, No Cyanosis, BL +1 edema Assessment/Plan Assessment: Mr. Kuhn is an 81-year-old male with PMH of CAD status post CABG, peripheral artery disease status post carotid endarterectomy, and femoral artery stenting, sick sinus syndrome status post pacemaker placement, diabetes, stage III CKD, hypertension, hyperlipidemia, diabetes who presents of dyspnea and chest pain. Patient will be transferred to hospice care Problem list #Possible coronary artery disease #Acute on top of chronic kidney disease #Acute hypoxemic respiratory failure #Hypertension and hyperlipidemia #Diabetes mellitus #Peripheral vascular disease, right foot ulcer, possible osteomyelitis #Benign prostatic hyperplasia #Gout #Possible coronary artery disease -Patient desat yesterday evening troponin was measured was 1.96 following up troponin is 2.49 this morning -Patient troponin on admission was 0.18, was trended down to 0.13 -Troponin elevation is attributed to worsening kidney function and demand ischemia -Cardiology is on board, appreciate the recommendation -Echo pending -Patient has history of sinus sick syndrome with pacemaker, will wait for integration for any history of arrhythmia -Patient has echo on 2013 with left ventricular ejection fraction 50-60% and stage II diastolic dysfunction #Acute on top of chronic kidney disease -Patient has 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 hypertensive nephrosclerosis -Patient Cr 2 weeks before admission was 2.5, on admission 4.5 -Today creatinine is 6.1 deteriorating -Nephrology is on board -HARSHAL versus ATN -Ultrasound renal show any signs of obstruction -Patient has Garcia with very poor urine output, the last 24 hour input/output 490/200 -Continue IV fluid 100 ml/h per nephrology -Patient has chronic metabolic acidosis on sodium bicarbonate -Continue Sodium bicarbonate 325 mg by mouth daily -Patient refusing dialysis #Hypertension and hyperlipidemia -Continue Crestor 20 mg daily home dose, patient has allergic from Lipitor -Continue metoprolol 12.5 mg twice a day -Continue aspirin 81 mg daily -Continue Imdur 60 mg daily -Discontinue amlodipine per cardiology -Hold Lasix #Diabetes mellitus -NovoLog 70-30 22 units twice a day -accu checks #Peripheral vascular disease, right foot ulcer, possible osteomyelitis -Continue clopidogrel 75 mg daily -X-ray right toes IMPRESSION: There is a skin ulcer adjacent to the medial aspect of the first metatarsophalangeal joint of the great toe. No definitive changes of osteomyelitis are seen at this level although early osteomyelitis may not be radiographically apparent. 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 -CT right foot 09/09/16 IMPRESSION: Soft tissue ulceration involving the medial aspect of the foot adjacent to the first metatarsal head. There are associated erosive changes of the head of the first metatarsal medially, highly suspicious for osteomyelitis. Asymmetric sclerosis of the medial sesamoid also raises suspicion for osteomyelitis. -Patient presented with WBC of 15.9 and lactic acid 1.1, blood pressure 100/50 no fever on admission although he developed fever overnight of 102. Sepsis with possible source right foot ulcer osteomyelitis versus pulmonary -Continue azithromycin 500 mg and decrease Unasyn to 1500 every 12 per nephrology -Vascular consultation was obtained, thanks for the recommendation -Recommendation for MRI right foot, patient has incompetent pacemaker -Vascular surgery and podiatry are important #Acute hypoxemic respiratory failure -Patient had an episode of desaturation last night was placed on nonrebreather mask 100% oxygen chest x-ray was ordered that showed acute changes in the right lung, Pneumonia, aspiration, or asymmetric edema or differential possibilities -Patient presented with WBC of 15.9 and lactic acid 1.1, blood pressure 100/50 no fever on admission although he developed fever overnight of 102. Sepsis with possible source right foot ulcer or pulmonary -Patient is continued to be febrile today was 100 MAXIMUM TEMPERATURE 102.1 -ID was consulted -Continue azithromycin 500 mg and decrease Unasyn to 1500 every 12 per nephrology #Benign prostatic hypertrophy -Continue Tamsulsoin 0.4 mg daily #Gout -Hold allopurinol DVT prophylaxis heparin subcutaneous Diet heart healthy diet Code DNR/DNI Consultation vascular, cardio, nephrology, ID pending Problem List: 1. Acute hypoxemic respiratory failure 2. Elevated troponin 3. Pneumonia 4. Acute on chronic renal failure 5. CAD (coronary artery disease) 6. Peripheral arterial occlusive disease 7. Benign essential hypertension 8. Diabetes mellitus type 2 Pain Ratin Pain Location: n/a Pain Goal: Remain pain free Pain Plan: see medication Tomorrow's Labs & Rationales: none ASAEL HILL MD 09/10/16 5167: Attending MD Review Statement Attending Statement Attending MD Statement: examined this patient, discuss w/resident/PA/FERN PICKER, agreed w/resident/PA/FERN PICKER, discussed with family, reviewed EMR data (avail), discussed with nursing, discussed with case mgmt, reviewed images, amended to note Attending Assessment/Plan: The patient was seen and discussed with house staff, case management and nursing. Had discussion with his daughter today and Nephrology. Decision is for Hospice Care and will transfer to Hospice service.
--- NOTE | 2016-09-10 08:57 | PN- Cardiology ---
Subjective Subjective: Patient febrile last night to 103. He remains confused. He is now on a nonrebreather. Review of Systems: Unobtainable Objective Vital Signs and I&Os Vital Signs Date Time Temp Pulse Resp B/P Pulse O2 O2 Flow FiO2 Ox Delivery Rate 09/10 0149 99.2 97 20 122/44 93 Non ReBreather 09/10 0000 94 Non 100% ReBreather 09/09 2200 99.9 92 22 110/60 94 Non 100% ReBreather 09/09 2154 93 110/60 09/09 2153 110/60 09/09 2152 99.9 09/09 2056 102.1 09/09 1540 98.0 80 18 110/50 93 Nasal Cannula 09/09 1039 94 110/42 09/09 1039 94 110/42 09/09 1039 94 11042 Intake & Output 09/10 1600 09/10 0800 09/10 0000 09/09 1600 09/09 0800 09/09 0000 Intake Total 202 783 0497 500 600 Output Total 200 125 659 473 8865 Balance 833 347 1447 200 -800 Intake, IV 370 500 550 300 200 Intake, Oral 462 039 2784 200 400 Output, Urine 200 125 327 645 5511 Patient 236 lb Weight Physical Exam: Patient is a well-developed well-nourished male appearing in moderate distress confused HEENT is unremarkable Neck is supple there is no JVD Lungs scattered rhonchi and wheezes bilaterally Heart regular rhythm S1 and S2 are normal no murmurs gallops or rubs Abdomen bowel sounds positive Extremities without edema Current Medications: Current Medications Sig/Howard Start time Last Medication Dose Route Stop Time Status Admin Acetaminophen 650 MG .[facility] ONE 09/09 2050 DC PO 09/09 2051 Acetaminophen 650 MG Q6P PRN 09/08 1515 AC 09/09 PO 2056 Acetaminophen 1,000 MG Q6P PRN 09/08 1515 DC 09/09 IV 0630 Amlodipine Besylate 5 MG DAILY 09/09 1000 DC 09/09 PO 1039 Ampicillin Sodium/ 1,500 MG Q12H 09/09 1600 AC 09/10 Sulbactam Sodium IV 0355 Sodium Chloride 100 ML Ampicillin Sodium/ 3,000 MG Q12H 09/08 1600 DC 09/09 Sulbactam Sodium IV 0400 Sodium Chloride 100 ML Aspirin 81 MG DAILY 09/09 1000 AC 09/09 PO 1039 Atorvastatin Calcium 80 MG 1700 09/08 1700 DC 09/08 PO 1839 Azithromycin 500 MG DAILY 09/08 1452 AC 09/09 Sodium Chloride 250 ML IV 1036 Cholecalciferol 2,000 IU DAILY 09/09 1000 AC 09/09 PO 1039 Clopidogrel Bisulfate 75 MG DAILY 09/09 1000 AC 09/09 PO 1039 Ferrous Sulfate 325 MG BID 09/08 2200 AC 09/09 PO 2153 Gabapentin 600 MG QPM 09/08 2200 AC 09/09 PO 2153 Heparin Sodium 5,000 UNIT Q8 09/08 1504 AC 09/10 (Porcine) SC 0602 Insulin Aspart Prota 22 UNIT BID 09/08 2200 AC 09/09 70%/Aspart 30% SC 2200 Isosorbide 60 MG DAILY 09/08 1448 AC 09/09 Mononitrate PO 1039 Metoprolol Tartrate 12.5 MG BID 09/08 2200 AC 09/09 PO 2154 Omeprazole 20 MG DAILY AC 09/08 1448 AC 09/10 PO 0602 Oxycodone/ 1 TAB Q6 PRN 09/08 1800 AC Acetaminophen PO Rosuvastatin Calcium 20 MG 1700 09/09 1700 AC 09/09 PO 1741 Sodium Bicarbonate 325 MG BID 09/08 2200 AC 09/09 PO 2153 Sodium Chloride 1,000 ML Q10H 09/09 1045 AC 09/09 IV 2015 Sodium Chloride 1,000 ML DAILY 09/08 1515 DC 09/08 IV 09/09 1959 1815 Tamsulosin HCl 0.4 MG QPM 09/08 2200 AC 09/09 PO 2153 Vancomycin HCl 1,000 MG ONCE ONE 09/09 2345 DC 09/10 Sodium Chloride 250 ML IV 09/10 0044 0135 Results Last 48 Hrs of Labs/Mics: Laboratory Tests 09/10/165: Phosphorus 6.7 H, Magnesium 1.8, Troponin I 2.49 *H 09/10/165: Anion Gap 19 H, Estimated GFR 9 L, BUN/Creatinine Ratio 14.9, CBC w Diff NO MAN DIFF REQ, RBC 2.95 L, MCV 85.7, MCH 28.1, RDW 15.1 H, MPV 7.9, Gran % 86.8 H, Lymphocytes % 4.4 L, Monocytes % 8.6, Eosinophils % 0.1, Basophils % 0.1, Absolute Granulocytes 12.0 H, Absolute Lymphocytes 0.6 L, Absolute Monocytes 1.2 H, Absolute Eosinophils 0, Absolute Basophils 0, PUBS MCHC 32.8 L 09/09/16 2120: Lactic Acid 1.1, Troponin I 1.96 *H 09/09/16 0615: Anion Gap 18 H, Estimated GFR 11 L, BUN/Creatinine Ratio 16.0, CBC w Diff NO MAN DIFF REQ, RBC 3.02 L, MCV 85.8, MCH 28.4, RDW 15.3 H, MPV 8.3, Gran % 88.8 H, Lymphocytes % 3.8 L, Monocytes % 7.0, Eosinophils % 0.2, Basophils % 0.2, Absolute Granulocytes 11.8 H, Absolute Lymphocytes 0.5 L, Absolute Monocytes 0.9 H, Absolute Eosinophils 0, Absolute Basophils 0, PUBS MCHC 33.1 09/09/16 0200: Urinalysis HEAVY H, Urine Color YEL, Urine Clarity CLDY H, Urine pH 6.0, Ur Specific [place] >= 1.030, Urine Protein 100 H, Urine Ketones NEG, Urine Nitrite NEG, Urine Bilirubin NEG, Urine Urobilinogen 0.2, Ur Leukocyte Esterase TRACE H, Ur Microscopic SEDIMENT EXAMINED, Urine RBC 10-15 H, Urine WBC 5-10 H, Ur Epithelial Cells MOD H, Granular Casts 1-3 H, Urine Hemoglobin LARGE H, Urine Glucose NEG 09/09/16 0045: Troponin I 0.13 *H 09/08/16 1815: Troponin I 0.16 *H 09/08/16 1432: Lactic Acid Cancelled 09/08/16 1155: Virus Culture Pending 09/08/16 1140: Anion Gap 20 H, Estimated GFR 13 L, BUN/Creatinine Ratio 16.2, Glucose 176 H, Lactic Acid 1.1, Calcium 8.3 L, Magnesium 1.8, Total Bilirubin 0.6, AST 22, ALT 18 L, Alkaline Phosphatase 54, Troponin I 0.18 *H, Alg-N-Wosejiozcqd Pept 6580 H, Total Protein 6.2 L, Albumin 3.6, Globulin 2.6, Albumin/Globulin Ratio 1.4, CBC w Diff NO MAN DIFF REQ, RBC 3.20 L, MCV 86.2, MCH 28.7, RDW 15.0 H, MPV 7.2 L, Gran % 83.3 H, Lymphocytes % 6.1 L, Monocytes % 10.0 H, Eosinophils % 0.2, Basophils % 0.4, Absolute Granulocytes 13.3 H, Absolute Lymphocytes 1.0 L , Absolute Monocytes 1.6 H, Absolute Eosinophils 0, Absolute Basophils 0.1, PUBS MCHC 33.3 09/08/16 1132: Urine Color Cancelled, Urine Clarity Cancelled, Urine pH Cancelled, Ur Specific [place] Cancelled, Urine Protein Cancelled, Urine Ketones Cancelled, Urine Nitrite Cancelled, Urine Bilirubin Cancelled, Urine Urobilinogen Cancelled, Ur Leukocyte Esterase Cancelled, Ur Microscopic Cancelled, Urine Hemoglobin Cancelled, Urine Glucose Cancelled Microbiology 09/09 1341 URINE ROUT: Legionella Antigen - COMP 09/09 1341 URINE ROUT: Streptococcus pneumoniae Antigen (M - COMP Telemetry personally reviewed sinus rhythm frequent PACs AIVR Recent Imaging Studies: Chest x-ray IMPRESSION: An acute change has occurred with patchy airspace disease involving the right lung. Pneumonia, aspiration, or asymmetric edema or differential possibilities. Assessment/Plan Assessment/Plan 1. Encephalopathy with fever and acute creatinine elevation probable aspiration 2. Concern for osteomyelitis 3. Acute on chronic renal failure with worsening renal function 4. Peripheral vascular disease (prior carotid and LE arterial interventions) 5. Mild troponin elevation likely due to renal failure with demand ischemia 6. History of coronary artery disease with prior CABG 7. History of sick sinus syndrome with prior pacemaker interrogation demonstrated normal function 8. History of hypertension/hyperlipidemia/diabetes mellitus 9. Transient wide complex rhythm, possibly AIVR 10. Anemia Recommendations 1. Continue antibiotics 2. Swallowing evaluation given possible aspiration pneumonia 3. Continue current medications 4. Echocardiogram is pending 5. Patient's daughter updated Continue telemetry? Yes
--- NOTE | 2016-09-10 10:05 | PN- Nephrology ---
Assessment/Plan Assessment: 1. HARSHAL: prob ATN; no recovery. Discussed in detail w daughter & opts for palliative/hospice care w comfort measures only 2. CKD: severe, stage 4. Suggestion: Hospice Will follow prn basis --> thanks Subjective Subjective: Confused overnight & on hi flow O2 after possible aspiration Urine oliguric Objective Vital Signs and I&Os Vital Signs Date Time Temp Pulse Resp B/P Pulse O2 O2 Flow FiO2 Ox Delivery Rate 09/10 0149 99.2 97 20 122/44 93 Non ReBreather 09/10 0000 94 Non 100% ReBreather 09/09 2200 99.9 92 22 110/60 94 Non 100% ReBreather 09/09 2154 93 110/60 09/09 2153 110/60 09/09 2152 99.9 09/09 2056 102.1 09/09 1540 98.0 80 18 110/50 93 Nasal Cannula 09/09 1039 94 110/42 09/09 1039 94 110/42 09/09 1039 94 110/42 Intake & Output 09/10 1600 09/10 0400 09/09 1600 09/09 0400 09/08 1600 09/08 0400 Intake Total 630 150 7157 600 850 Output Total 200 348 510 0763 Balance 542 852 6503 -800 850 Intake, IV 370 500 850 200 850 Intake, Oral 841 235 5486 400 Output, Urine 200 336 838 0092 Patient 236 lb 236 lb Weight Physical Exam General Appearance: no apparent distress, hi flow O2 by nc Head: atraumatic, normal appearance Neck: normal inspection Respiratory: rales (R base; clear L) Cardiovascular: regular rate/rhythm, friction rub (none) Abdomen: soft, non-tender Extremities: swelling (trace), R foot dressed Neurologic/Psychiatric: awake, oriented yr & mo not place, + asterixis Current Medications: Current Medications Sig/Howard Start time Last Medication Dose Route Stop Time Status Admin Acetaminophen 650 MG .[facility]-MED ONE 09/09 2050 DC PO 09/09 2051 Acetaminophen 650 MG Q6P PRN 09/08 1515 AC 09/09 PO 2056 Amlodipine Besylate 5 MG DAILY 09/09 1000 DC 09/09 PO 1039 Ampicillin Sodium/ 1,500 MG Q12H 09/09 1600 AC 09/10 Sulbactam Sodium IV 0355 Sodium Chloride 100 ML Ampicillin Sodium/ 3,000 MG Q12H 09/08 1600 DC 09/09 Sulbactam Sodium IV 0400 Sodium Chloride 100 ML Aspirin 81 MG DAILY 09/09 1000 AC 09/09 PO 1039 Atorvastatin Calcium 80 MG 1700 09/08 1700 DC 09/08 PO 1839 Azithromycin 500 MG DAILY 09/08 1452 AC 09/09 Sodium Chloride 250 ML IV 1036 Cholecalciferol 2,000 IU DAILY 09/09 1000 AC 09/09 PO 1039 Clopidogrel Bisulfate 75 MG DAILY 09/09 1000 AC 09/09 PO 1039 Ferrous Sulfate 325 MG BID 09/08 2200 AC 09/09 PO 2153 Gabapentin 600 MG QPM 09/08 2200 AC 09/09 PO 2153 Heparin Sodium 5,000 UNIT Q8 09/08 1504 AC 09/10 (Porcine) SC 0602 Insulin Aspart Prota 22 UNIT BID 09/08 2199 AC 09/09 70%/Aspart 30% SC 2200 Isosorbide 60 MG DAILY 09/08 1448 AC 09/09 Mononitrate PO 1039 Metoprolol Tartrate 12.5 MG BID 09/08 2200 AC 09/09 PO 2154 Omeprazole 20 MG DAILY AC 09/08 1448 AC 09/10 PO 0602 Oxycodone/ 1 TAB Q6 PRN 09/08 1800 AC Acetaminophen PO Rosuvastatin Calcium 20 MG 1700 09/09 1700 AC 09/09 PO 1741 Sodium Bicarbonate 325 MG BID 09/08 220 AC 09/09 PO 2153 Sodium Chloride 1,000 ML Q10H 09/09 1045 AC 09/09 IV 2015 Sodium Chloride 1,000 ML DAILY 09/08 1515 DC 09/08 IV 09/09 1959 1815 Tamsulosin HCl 0.4 MG QPM 09/08 220 AC 09/09 PO 2153 Vancomycin HCl 1,000 MG ONCE ONE 09/09 2345 DC 09/10 Sodium Chloride 250 ML IV 09/10 0044 0135 Results Pertinent Lab Results: Laboratory Tests 09/10 09/10 09/09 0325 0325 2120 Chemistry Sodium (137 - 145 mmol/L) 133 L Potassium (3.5 - 5.1 mmol/L) 5.1 Chloride (98 - 107 mmol/L) 95 L Carbon Dioxide (22 - 30 mmol/L) 19 L Anion Gap (5 - 16) 19 H BUN (9 - 20 mg/dL) 91 H Creatinine (0.7 - 1.2 mg/dL) 6.1 *H Estimated GFR (>60 ml/min) 9 L BUN/Creatinine Ratio (7 - 25 %) 14.9 Lactic Acid (0.7 - 2.1 mmol/L) 1.1 Phosphorus (2.5 - 4.5 mg/dL) 6.7 H Magnesium (1.6 - 2.3 mg/dL) 1.8 Troponin I (<0.11 ng/ml) 2.49 *H 1.96 *H Hematology CBC w Diff NO MAN DIFF REQ WBC (4.8 - 10.8 /CUMM) 13.8 H RBC (4.70 - 6.10 /CUMM) 2.95 L Hgb (14.0 - 18.0 G/DL) 8.3 L Hct (42 - 52 %) 25.2 L MCV (80.0 - 94.0 FL) 85.7 MCH (27.0 - 31.0 PG) 28.1 RDW (11.5 - 14.5 %) 15.1 H Plt Count (130 - 400 /CUMM) 157 MPV (7.4 - 10.4 FL) 7.9 Gran % (42.2 - 75.2 %) 86.8 H Lymphocytes % (20.5 - 51.1 %) 4.4 L Monocytes % (1.7 - 9.3 %) 8.6 Eosinophils % (0 - 5 %) 0.1 Basophils % (0.0 - 2.0 %) 0.1 Absolute Granulocytes (1.4 - 6.5 /CUMM) 12.0 H Absolute Lymphocytes (1.2 - 3.4 /CUMM) 0.6 L Absolute Monocytes (0.10 - 0.60 /CUMM) 1.2 H Absolute Eosinophils (0.0 - 0.7 /CUMM) 0 Absolute Basophils (0.0 - 0.2 /CUMM) 0 PUBS MCHC (33.0 - 37.0 G/DL) 32.8 L 09/09 09/09 0615 0200 Chemistry Sodium (137 - 145 mmol/L) 134 L Potassium (3.5 - 5.1 mmol/L) 4.9 Chloride (98 - 107 mmol/L) 97 L Carbon Dioxide (22 - 30 mmol/L) 19 L Anion Gap (5 - 16) 18 H BUN (9 - 20 mg/dL) 83 H Creatinine (0.7 - 1.2 mg/dL) 5.2 *H Estimated GFR (>60 ml/min) 11 L BUN/Creatinine Ratio (7 - 25 %) 16.0 Hematology CBC w Diff NO MAN DIFF REQ WBC (4.8 - 10.8 /CUMM) 13.3 H RBC (4.70 - 6.10 /CUMM) 3.02 L Hgb (14.0 - 18.0 G/DL) 8.6 L Hct (42 - 52 %) 25.9 L MCV (80.0 - 94.0 FL) 85.8 MCH (27.0 - 31.0 PG) 28.4 RDW (11.5 - 14.5 %) 15.3 H Plt Count (130 - 400 /CUMM) 142 MPV (7.4 - 10.4 FL) 8.3 Gran % (42.2 - 75.2 %) 88.8 H Lymphocytes % (20.5 - 51.1 %) 3.8 L Monocytes % (1.7 - 9.3 %) 7.0 Eosinophils % (0 - 5 %) 0.2 Basophils % (0.0 - 2.0 %) 0.2 Absolute Granulocytes (1.4 - 6.5 /CUMM) 11.8 H Absolute Lymphocytes (1.2 - 3.4 /CUMM) 0.5 L Absolute Monocytes (0.10 - 0.60 /CUMM) 0.9 H Absolute Eosinophils (0.0 - 0.7 /CUMM) 0 Absolute Basophils (0.0 - 0.2 /CUMM) 0 PUBS MCHC (33.0 - 37.0 G/DL) 33.1 Urines Urinalysis HEAVY H Urine Color (YEL,AMB,STR) YEL Urine Clarity (CLEAR) CLDY H Urine pH (5.0 - 8.0) 6.0 Ur Specific [place] (1.001 - 1.035) >= 1.030 Urine Protein (NEG,<30 MG/DL) 100 H Urine Ketones (NEG) NEG Urine Nitrite (NEG) NEG Urine Bilirubin (NEG) NEG Urine Urobilinogen (0.1 - 1.0 EU/dl) 0.2 Ur Leukocyte Esterase (NEG) TRACE H Ur Microscopic SEDIMENT EXAMINED Urine RBC (0 - 5 /HPF) 10-15 H Urine WBC (0 - 2 /HPF) 5-10 H Ur Epithelial Cells (NONE,FEW) MOD H Granular Casts (NONE /LPF) 1-3 H Urine Hemoglobin (NEG) LARGE H Urine Glucose (N MG/DL) NEG 09/09 09/08 09/08 09/08 0045 1815 1432 1155 Chemistry Lactic Acid Cancelled Troponin I (<0.11 ng/ml) 0.13 *H 0.16 *H Serology Virus Culture Pending 09/08 09/08 1140 1132 Chemistry Sodium (137 - 145 mmol/L) 136 L Potassium (3.5 - 5.1 mmol/L) 4.3 Chloride (98 - 107 mmol/L) 95 L Carbon Dioxide (22 - 30 mmol/L) 22 Anion Gap (5 - 16) 20 H BUN (9 - 20 mg/dL) 73 H Creatinine (0.7 - 1.2 mg/dL) 4.5 H Estimated GFR (>60 ml/min) 13 L BUN/Creatinine Ratio (7 - 25 %) 16.2 Glucose (65 - 99 mg/dL) 176 H Lactic Acid (0.7 - 2.1 mmol/L) 1.1 Calcium (8.4 - 10.2 mg/dL) 8.3 L Magnesium (1.6 - 2.3 mg/dL) 1.8 Total Bilirubin (0.2 - 1.3 mg/dL) 0.6 AST (17 - 59 U/L) 22 ALT (21 - 72 U/L) 18 L Alkaline Phosphatase (< 127 U/L) 54 Troponin I (<0.11 ng/ml) 0.18 *H Fdd-A-Oizsajlrpvp Pept (<125 pg/mL) 6580 H Total Protein (6.3 - 8.2 g/dL) 6.2 L Albumin (3.5 - 5.0 g/dL) 3.6 Globulin (1.9 - 4.2 gm/dL) 2.6 Albumin/Globulin Ratio (1.1 - 2.2 %) 1.4 Hematology CBC w Diff NO MAN DIFF REQ WBC (4.8 - 10.8 /CUMM) 15.9 H RBC (4.70 - 6.10 /CUMM) 3.20 L Hgb (14.0 - 18.0 G/DL) 9.2 L Hct (42 - 52 %) 27.5 L MCV (80.0 - 94.0 FL) 86.2 MCH (27.0 - 31.0 PG) 28.7 RDW (11.5 - 14.5 %) 15.0 H Plt Count (130 - 400 /CUMM) 187 MPV (7.4 - 10.4 FL) 7.2 L Gran % (42.2 - 75.2 %) 83.3 H Lymphocytes % (20.5 - 51.1 %) 6.1 L Monocytes % (1.7 - 9.3 %) 10.0 H Eosinophils % (0 - 5 %) 0.2 Basophils % (0.0 - 2.0 %) 0.4 Absolute Granulocytes (1.4 - 6.5 /CUMM) 13.3 H Absolute Lymphocytes (1.2 - 3.4 /CUMM) 1.0 L Absolute Monocytes (0.10 - 0.60 /CUMM) 1.6 H Absolute Eosinophils (0.0 - 0.7 /CUMM) 0 Absolute Basophils (0.0 - 0.2 /CUMM) 0.1 PUBS MCHC (33.0 - 37.0 G/DL) 33.3 Urines Urine Color Cancelled Urine Clarity Cancelled Urine pH Cancelled Ur Specific [place] Cancelled Urine Protein Cancelled Urine Ketones Cancelled Urine Nitrite Cancelled Urine Bilirubin Cancelled Urine Urobilinogen Cancelled Ur Leukocyte Esterase Cancelled Ur Microscopic Cancelled Urine Hemoglobin Cancelled Urine Glucose Cancelled Imaging/Other Studies: CXR: An acute change has occurred with patchy airspace disease involving the right lung. Pneumonia, aspiration, or asymmetric edema or differential possibilities.
[2016-09-10 11:29] VITALS: BP 100/48
--- NOTE | 2016-09-10 13:45 | Discharge Summary ---
Visit Information Visit Dates Admission Date: 09/08/16 Discharge Date: 09/10/16 Hospital Course Course Attending Physician: ASAEL HILL MD Primary Care Physician: WALLACE LORD MD Consulting Request: 1 Consulting Specialty: Cardiology Consulting Physician: Yaya Salazar MD Reason for Consult: Sick sinus syndrome with pacemaker, elevated troponin Consulting Request: 2 Consulting Specialty: Nephrology Consulting Physician: Marcos Ho MD Reason for Consult: Acute on chronic kidney disease stage IV Consulting Request: 3 Consulting Specialty: Podiatry Consulting Physician: Lucho Mtz MD Reason for Consult: Chronic right foot ulcer with posiible osteomyelitis Consulting Request: 4 Consulting Specialty: Podiatry Consulting Physician: Romario Merino Dpm, MD Reason for Consult: Chronic right foot ulcer with possible osetomyelitis Hospital Course: Mr. Kuhn is an 81-year-old male with PMH of CAD status post CABG, peripheral artery disease status post carotid endarterectomy, and femoral artery stenting, sick sinus syndrome status post pacemaker placement, diabetes, stage III CKD, hypertension, hyperlipidemia, diabetes who presents of dyspnea and chest pain. Problem list #Possible coronary artery disease #Acute on top of chronic kidney disease #Acute hypoxemic respiratory failure #Hypertension and hyperlipidemia #Diabetes mellitus #Peripheral vascular disease, right foot ulcer, possible osteomyelitis #Benign prostatic hyperplasia #Gout #Possible coronary artery disease -Patient desat yesterday evening troponin was measured 1.96 following up troponin is 2.49 this morning -Patient troponin on admission was 0.18 -Troponin elevation is attributed to worsening kidney function and demand ischemia -Cardiology is on board, appreciate the recommendation -Echo pending -Patient has history of sinus sick syndrome with pacemaker -Patient has echo on 2013 with left ventricular ejection fraction 50-60% and stage II diastolic dysfunction #Acute on top of chronic kidney disease -Patient has 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 hypertensive nephrosclerosis -Patient Cr 2 weeks before admission was 2.5, on admission 4.5 -Today creatinine is 6.1 deteriorating -Nephrology is on board -HARSHAL versus ATN -Ultrasound renal show any signs of obstruction -Patient has Garcia with very poor urine output, the last 24 hour input/output 490/200 -Continue IV fluid 100 ml/h per nephrology -Patient has chronic metabolic acidosis on sodium bicarbonate -Continue Sodium bicarbonate 325 mg by mouth daily -Patient refusing dialysis #Hypertension and hyperlipidemia -Continue Crestor 20 mg daily home dose, patient has allergic from Lipitor -Continue metoprolol 12.5 mg twice a day -Continue aspirin 81 mg daily -Continue Imdur 60 mg daily -Discontinue amlodipine per cardiology -Hold Lasix #Diabetes mellitus -NovoLog 70-30 22 units twice a day -accu checks #Peripheral vascular disease, right foot ulcer, possible osteomyelitis -Continue clopidogrel 75 mg daily -X-ray right toes IMPRESSION: There is a skin ulcer adjacent to the medial aspect of the first metatarsophalangeal joint of the great toe. No definitive changes of osteomyelitis are seen at this level although early osteomyelitis may not be radiographically apparent. 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 -CT right foot 09/09/16 instead of MRI givin the incompetent pacemaker IMPRESSION: Soft tissue ulceration involving the medial aspect of the foot adjacent to the first metatarsal head. There are associated erosive changes of the head of the first metatarsal medially, highly suspicious for osteomyelitis. Asymmetric sclerosis of the medial sesamoid also raises suspicion for osteomyelitis. -Patient presented with WBC of 15.9 and lactic acid 1.1, blood pressure 100/50 no fever on admission although he developed fever overnight of 102. Sepsis with possible source right foot ulcer osteomyelitis versus pulmonary -Continue azithromycin 500 mg and Unasyn to 1500 every 12 -Vascular surgery and podiatry are on board #Acute hypoxemic respiratory failure -Patient had an episode of desaturation last night was placed on nonrebreather mask 100% oxygen chest x-ray was ordered that showed acute changes in the right lung, Pneumonia, aspiration, or asymmetric edema or differential possibilities -patient recevied one dose of vancomycin 1000 mg Iv yeaterday -Patient is continued to be febrile today was 100 MAXIMUM TEMPERATURE 102. -Continue azithromycin 500 mg and Unasyn to 1500 every 12 #Benign prostatic hypertrophy -Continue Tamsulsoin 0.4 mg daily #Gout -Hold allopurinol #The patient is not willing for any aggressive measures including hemodialysis, the patient's family decided for hospice care today giving his poor prognosis DVT prophylaxis heparin subcutaneous Diet heart healthy diet Code DNR/DNI Consultation vascular, cardio, nephrology, ID pending Allergies: Coded Allergies: NO KNOWN ALLERGIES (03/25/16) Disposition Summary Disposition Principal Diagnosis: #Acute on top of chronic kidney disease #Elevated troponin Additional Diagnosis: #Acute hypoxemic respiratory failure #Peripheral vascular disease with chronic right foot ulcer Discharge Disposition: hospice - medical facilit Discharge Instructions General Discharge Information Code Status: Do Not Resucitate/Intubat Patient's Diet: As tolerated Patient's Activity: As tolerated Follow-Up Instructions/Appts: Patient was transferred to hospice care Copies To: TOMAS PEACE,MARCOS Dickson; RISA PEACE,WALLACE Gooden; ELFEGO PEACE,LUCHO RUBIO; ROMARIO GOTTLIEB DPM; DURAN PEACE,YAYA Liu Attending MD Review Statement Documenting Attending: ASAEL HILL MD Other Findings: The patient was seen and discussed with house staff, family (daughter), and case management. Will transfer to Hospice service. Comfort measures.
== END 2016-09-10 15:42 | disposition hospice, home (50) | DRG 871 ==
LOC: ERH 11:19 → ERHI 13:10 → 1NO 13:10 → 2NA 09-10 15:33
PROVIDERS: Emergency Medicine; Internal Medicine Cardiovascular Disease; Student in an Organized Health Care Education/Training Program; ADMIT Internal Medicine
DX: A41.9 Sepsis, unspecified organism (principal); J69.0 Pneumonitis due to inhalation of food and vomit; J96.01 Acute respiratory failure with hypoxia; G93.40 Encephalopathy, unspecified; N17.9 Acute kidney failure, unspecified; N18.4 Chronic kidney disease, stage 4 (severe); E87.2 Acidosis; I13.0 Hypertensive heart and chronic kidney disease with heart failure and stage 1 through stage 4 chronic kidney disease, or unspecified chronic kidney disease; I50.32 Chronic diastolic (congestive) heart failure; M86.8X7 Other osteomyelitis, ankle and foot; E11.65 Type 2 diabetes mellitus with hyperglycemia; L97.519 Non-pressure chronic ulcer of other part of right foot with unspecified severity; E66.9 Obesity, unspecified; Z68.33 Body mass index [BMI] 33.0-33.9, adult; I25.9 Chronic ischemic heart disease, unspecified; I73.9 Peripheral vascular disease, unspecified; I99.8 Other disorder of circulatory system; Z95.1 Presence of aortocoronary bypass graft; Z95.0 Presence of cardiac pacemaker; E78.5 Hyperlipidemia, unspecified; Z87.891 Personal history of nicotine dependence; Z66 Do not resuscitate; I25.10 Atherosclerotic heart disease of native coronary artery without angina pectoris; Z51.5 Encounter for palliative care; N40.0 Benign prostatic hyperplasia without lower urinary tract symptoms; M10.9 Gout, unspecified; Z79.4 Long term (current) use of insulin
CPT/HCPCS: 1NP; 36415; 73660-RT; 76775; 81001; 82436; 87040; 87070; 87086; 87449; 87450; 87804; 87804-59; 93005; 93010; 96365; 96375; 99291; J0131; J0456; J0696; J1644; J3370; J3490; J7040

== ENCOUNTER 2016-09-10 15:43 | Inpatient (IN) | payer OTHER ==
[~2016-09-10 15:43] MED LIST changes: +CLOPIDOGREL75 M1 PO; +VITAMIN D2000 UNI1 PO
--- NOTE | 2016-09-10 17:40 | History & Physical ---
General Information and HPI MD Statement: I have seen and personally examined HOLLIE MALDONADO and documented this H&P. The patient is a 81 year old M who presented with a patient stated chief complaint of worsening end stage renal failure, acute hypoxic respiratory failure secondary to diffuse aspiration pneumonia- for Hospice Care/Palliative Care. Source of Information: family, old records Exam Limitations: unable to give history, poor historian History of Present Illness: The patient is an 81 yo male with h/o chronic renal failure, PVD/osteomyelitis right foot CAD, DM, HTN, HL who was originally admitted to the medical service ( telemetry) at [facility] 09/08/16 with fever and possible pneumonia/ osteomyelitis. He had HARSHAL/CKD at time of admission and was treated with IV antibiotics (Vanco, Unasyn, Zithromax) for infection. Was seen by all spedialists including Podiatry for osteomyelitis of the right foot (on CT). The patient had previous discussions with Nephrology and had determined that he did not wish dialysis/aggressive care. His Creatinine continued to rise. He developed diffuse pulmonary infiltrates and acute hypoxic respiratory failure requiring non-rebreather mask. In light of poor prognosis, his daughter elected to transfer him to Hospice care for comfort measures. He was already DNR/DNI, however she knew his wishes not to be kept alive by heroics and had declined dialysis care. Allergies/Medications Allergies: Coded Allergies: NO KNOWN ALLERGIES (03/25/16) Home Med list Allopurinol 300 MG TAB 1 TAB PO DAILY GOUT (Reported) Amlodipine (Norvasc 5MG Tab) 5 MG TABLET 1 TAB PO DAILY blood pressure ( Reported) Aspirin 81 MG TAB.CHEW 1 TAB PO DAILY HEART HEALTH (Reported) Cholecalciferol (Vitamin D3) (Vitamin D) 2,000 UNIT TABLET 1 TAB PO DAILY SUPPLEMENT (Reported) Clopidogrel Bisulfate (Clopidogrel) 75 MG TABLET 1 TAB PO DAILY BLOOD THINNER (Reported) Ferrous Sulfate 325 MG TABLET 1 TAB PO BID RENAL FAILURE (Reported) Furosemide (Lasix) 40 MG TABLET 1 TAB PO DAILY CHF (Reported) Gabapentin (Neurontin) 300 MG CAPSULE 2 CAP PO QPM NERVE PAIN (Reported) Insulin Aspart Protam & Aspart (Novolog Mix 70-30 Vial) 100 UNIT/ML (70-30) VIAL 22 U SC BID DIABETES (Reported) Isosorbide Mononitrate (Imdur) [address] TAB PO DAILY CAD (Reported) Metoprolol Tartrate 25 MG TABLET 0.5 TAB PO BID HEART/BP (Reported) Omeprazole (Prilosec) 20 MG ECC 1 TAB PO DAILY GERD (Reported) Rosuvastatin Calcium (Crestor) 20 MG TABLET 1 TAB PO DAILY CHOLESTEROL ( Reported) Sodium Bicarbonate 325 MG TABLET 1 TAB PO BID RENAL (Reported) Tamsulosin HCl (Flomax) 0.4 MG CAP.ER.24H 1 CAP PO QPM PROSTATE (Reported) Compliance With Home Meds: GOOD Past History Travel History Traveled to [place] past 21 day No Medical History Type of Reaction: Hives/Urticaria Neurological: NONE EENT: NONE Cardiovascular: CAD, CHF, CABG FEMORAL STENTS Respiratory: NONE Gastrointestinal: NONE, upper GI bleed Hepatic: NONE Renal: chronic kidney disease Musculoskeletal: NEUROPATHY Psychiatric: NONE Endocrine: diabetes Blood Disorders: NONE Cancer(s): NONE VISUALIZATION DEVELOPER/Reproductive: NONE Other Medical Hx: Diastolic CHF, Lt. carotid stent, BPH, History of MRSA: No History of VRE: No History of CDIFF: No Isolation History: Standard Surgical History Surgical History: CABG (vascular surgery) Past Family/Social History Family History Relations & Conditions if any No Known Family History. Psychosocial History Services at Home: None Primary Language: Swedish ETOH Use: denies use Illicit Drug Use: denies illicit drug use Living Will? yes Functional Ability Ambulation: non-ambulatory Employment History Employment Retired Review of Systems Review of Systems Constitutional: Denies: no symptoms. EENTM: Denies: no symptoms. Cardiovascular: Reports: orthopena, palpitations, peripheral edema. Respiratory: Reports: short of breath. GI: Denies: no symptoms. Genitourinary: Denies: no symptoms. Musculoskeletal: Denies: no symptoms. Skin: Denies: no symptoms. Neurological/Psychological: Reports: confusion. Hematologic/Endocrine: Denies: no symptoms. Immunologic/Allergic: Denies: no symptoms. Exam & Diagnostic Data Last 24 Hrs of Vital Signs/I&O See written chart. Physical Exam General Appearance Cooperative, AROUSABLE, BUT SOMNOLENT Skin RLE STASIS CHANGES, TOE INFECTION HEENT Atraumatic, PERRLA, EOMI Neck Supple, No JVD Cardiovascular Regular Rate, Normal S1, Normal S2, No Murmurs Lungs DIFFUSE RHONCHI/RALES Abdomen Normal Bowel Sounds, Soft, No Tenderness Neurological Sensation Intact, Cranial Nerves 3-12 NL Extremities 2-3+EDEMA Vascular Pulses Symmetrical Assessment/Plan Assessment: #Acute Kidney Injury/CKD- End Stage Renal Disease. Seen by Nephrology. Patient has always indicated he did not wish dialysis. Prognosis poor. Plan: Transfer to Hospice Service (discussed with daughter). #Acute Hypoxic Respiratory Failure- Secondary to Aspiration Pneumonia- patient requiring non-rebreather mask. As above, he did not wish heroics per daughter. Plan: Continue oxygen at present as part of comfort measures. #CAD- no chest pain at present. Plan: Comfort Measures as above. As Ranked By This Provider Problem List: 1. Acute on chronic renal failure 2. CAD (coronary artery disease) 3. Shortness of breath 4. Acute hypoxemic respiratory failure 5. Aspiration pneumonia 6. Osteomyelitis of foot, right, acute Core Measures/Miscellaneous Acute Coronary Syndrome ACS Diagnosis: No Cerebrovascular Accident CVA/TIA Diagnosis: No Congestive Heart Failure CHF Diagnosis: No Venous Thromboembolism VTE Risk Factors: Acute medical illness, Age > 40 VTE Prophylaxis Ordered Inpt: Mechanical (ALPS/TEDS) No Mech VTE prophylaxis d/t: VTE low risk (COMFORT MEASURES) No VTE Pharm Prophylaxis d/t: Refused treatment VTE Diagnosis: No VTE Type: NONE VTE Confirmed by (Test): NONE Severe Sepsis Severe Sepsis Present: No Septic Shock Septic Shock Present: No Miscellaneous Documentation Attending Case Discussed With: ASAEL HILL MD Primary Care Physician: WALLACE LORD MD Patient sees these Specialists MULTIPLE- DR. CHANCE- NEPHROLOGY Level of Patient Care: General Medicine Attending MD Review Statement Attending Statement Attending MD Statement: examined this patient, discuss w/resident/PA/BANK OPERATIONS OFFICER, agreed w/resident/PA/BANK OPERATIONS OFFICER, discussed with family, reviewed EMR data (avail), discussed with nursing, discussed with case mgmt, reviewed images, amended to note Attending Assessment/Plan: The patient was seen and discussed with Hospice staff and CRM.
--- NOTE | 2016-09-10 17:40 | Admission Certification ---
Admission Certification Certification Statement - As attending physician, I certify that at the time of - admission, based on clinical presentation, severity of - symptoms, need for further diagnostic testing and - therapeutic interventions, and risk of adverse outcomes - without in-hospital treatment, in my clinical assessment, - this patient requires an acute hospital stay for a minimum - of two nights or longer. I have also considered psychsocial - factors such as support system, advanced age, financial - issues, cognitive issues, and failed out-patient treatments, - past re-admission history, safety of patient, and lack of - compliance as applicable. Specific rationale supporting this admission is: Admitted for Hospice Care/Palliative Care End Stage Renal Disease/HARSHAL
--- NOTE | 2016-09-12 11:45 | Discharge Summary ---
Visit Information Visit Dates Admission Date: 09/10/16 Discharge Date: 09/11/16 Hospital Course Course Attending Physician: ASAEL HILL MD Primary Care Physician: WALLACE LORD MD Consulting Request: Consulting Physician: NONE Hospital Course: The patient is an 81 yo male with CKD, PVD/osteomyelitis (right foot), CAD, HTN, HL originally admitted to the medical service here at [facility] on . He developed a diffuse pulmonary infiltrate c/w aspiration pneumonia, had acute hypoxic respiratory failure requiring a non-rebreather mask, as well as worsening renal failure. He had previously declined any nephrology intervention (dialysis, etc.). After discussion with the family he was converted to Hospice care here at [facility] on 09/10/16. He in the morning on 09/11/16. certificate was signed. Complications: None Allergies: Coded Allergies: NO KNOWN ALLERGIES (03/25/16) Significant Procedures: None Pertinent Lab Results: None Disposition Summary Disposition Principal Diagnosis: ACUTE HYPOXIC RESPIRATORY FAILURE SECONDARY TO ASPIRATION PNEUMONIA Additional Diagnosis: ACUTE ON CHRONIC RENAL FAILURE Discharge Disposition: ON HOSPICE SERVICE Discharge Instructions General Discharge Information Code Status: Hospice Patient's Diet: - NO DIET Patient's Activity: - NO MEDICATION Follow-Up Instructions/Appts: Copies To: WALLACE LORD MD
== END 2016-09-11 07:52 | disposition expired | DRG 189 ==
LOC: 2NA 15:43
PROVIDERS: ADMIT Internal Medicine
DX: J96.01 Acute respiratory failure with hypoxia (principal); J69.0 Pneumonitis due to inhalation of food and vomit; Z51.5 Encounter for palliative care
CPT/HCPCS: 2NAP